=== PATIENT | male | born 1975 ===

== ENCOUNTER 2017-01-09 03:46 | Observation (INO) | payer MEDICAID ==
[2017-01-09 03:46] VITALS: BMI 29.7
--- NOTE | 2017-01-09 04:37 | ED PDOC ---
Upper Extremity Pain/Injury Time Seen by Provider: 01/09/17 04:04 Chief Complaint (Nursing): Upper Extremity Problem/Injury Chief Complaint (Provider): Right forearm pain History Per: Patient History/Exam Limitations: no limitations Onset/Duration Of Symptoms: Days Current Symptoms Are (Timing): Still Present Quality: "Pain" Severity: Severe Pain Scale Rating Of: 9 Exacerbating Factor(s): Movement Additional History Per: Patient Additional Complaint(s): Pt is a 41 y/o male with pmhx of cirrhosis ans esophageal varices recently discharged home from following an inpatient hospital stay. pt reports tuesday prior to his discharge, an IV line was started on him that initially formed a bubble at the site of insertion, then its got red and was hurting. He was told to use warm compresses at the site, but pain has not improved and swelling has actually increased. There is no vascular/neurologic deficits. Pt is able to move arm and fingers, denies any numbness or tingling, fever, chills, nausea or vomiting Past Medical History Vital Signs: Last Vital Signs Temp 98.6 F 01/09/17 03:55 Pulse 87 01/09/17 03:55 Resp 16 01/09/17 03:55 BP 165/83 H 01/09/17 03:55 Pulse Ox 100 01/09/17 03:55 - Medical History PMH: Denies: HIV, Chronic Kidney Disease - Surgical History Surgical History: Endoscopy - Family History Family History: States: Unknown Family Hx - Home Medications Home Medications: Ambulatory Orders Medication Instructions Recorded Ciprofloxacin [Cipro] 500 mg PO BID #10 tab 01/07/17 Pantoprazole [Protonix EC Tab] 40 mg PO DAILY #30 ect 01/07/17 - Allergies Allergies/Adverse Reactions: Allergies Allergy/AdvReac Type Severity Reaction Status Date / Time Penicillins Allergy RASH Verified 01/03/17 19:18 Review of Systems Constitutional: Negative for: Fever, Chills Cardiovascular: Negative for: Chest Pain, Palpitations Respiratory: Negative for: Cough, Shortness of Breath, Wheezing Gastrointestinal: Negative for: Nausea, Vomiting, Abdominal Pain Genitourinary Male: Negative for: Dysuria, Hematuria Musculoskeletal: Positive for: Arm Pain Skin: Positive for: Bruising Neurological: Negative for: Weakness, Numbness Physical Exam - Physical Exam Appears: Positive for: Uncomfortable Head Exam: Positive for: ATRAUMATIC, NORMOCEPHALIC Skin: Positive for: Warm, Dry Cardiovascular/Chest: Positive for: Regular Rate, Rhythm, Chest Non Tender. Negative for: JVD Respiratory: Positive for: Normal Breath Sounds. Negative for: Decreased Breath Sounds, Accessory Muscle Use, Wheezing Gastrointestinal/Abdominal: Positive for: Bowel Sounds, Soft. Negative for: Tenderness Extremity: Positive for: Tenderness (right fore arm is swelling, has about 10cm area of erythema), Capillary Refill. Negative for: Deformity Neurologic/Psych: Positive for: Alert, amf mechanic II-XII, Oriented. Negative for: Motor/Sensory Deficits - Laboratory Results Result Diagrams: 01/09/17 04:30 01/09/17 04:30 - ECG O2 Sat by Pulse Oximetry: 100 - Progress ED Course And Treament: cbc, cmp, pt/ptt, lactid acid pain medication ultrasound of upper extremity Re-evaluation Time: 06:15 Condition: Improving,but remains with symptoms Disposition - Clinical Impression Clinical Impression: At risk for thrombophlebitis - Patient ED Disposition Is Patient to be Admitted: Transfer of Care - Disposition Disposition: Transfer of Care Disposition Time: 06:50 Condition: FAIR Patient Signed Over To: Tej Mcguire (f/u ultrasound results)
[2017-01-09 04:38] LABS: MEAN CELL VOLUME 87.6 fl (80.0-94.0); MEAN CORPUSCULAR HEMOGLOBIN 29.3 pg (27.0-31.0); MEAN CORPUSCULAR HGB CONC 33.4 g/dL (33.0-37.0); RBC 3.08 Mil/uL (4.40-5.90); RED CELL DISTRIBUTION WIDTH 19.7 % (11.5-14.5); WHITE BLOOD COUNT 3.8 K/uL (4.8-10.8)
[2017-01-09 04:46] LABS: ALBUMIN 3.4 g/dL (3.5-5.0); ALT/SGPT 57 U/L (21-72); AST/SGOT 63 U/L (17-59); BLOOD UREA NITROGEN 22 mg/dl (9-20); CALCIUM 8.3 mg/dL (8.4-10.2); GFR AFRICAN-AMERICAN > 60; GFR NON-AFRICAN AMERICAN > 60
[2017-01-09 05:06] LABS: INR 1.7 (0.9-1.2); PARTIAL THROMBOPLASTIN TIME 35.2 Seconds (25.6-37.1); PROTHROMBIN TIME 17.5 Seconds (9.8-13.1)
--- NOTE | 2017-01-09 07:22 | ED PDOC ---
- Laboratory Results Result Diagrams: 01/09/17 04:30 01/09/17 04:30 - ECG O2 Sat by Pulse Oximetry: 100 (RA) Pulse Ox Interpretation: Normal Medical Decision Making Medical Decision Making: Time: 07:00 --Patient is signed out by Carlos Tracy to ks, pending ultrasound Disposition - Clinical Impression Clinical Impression: At risk for thrombophlebitis, Thrombophlebitis arm - POA Present On Arrival: None - Disposition Disposition: Routine/Home Disposition Time: 11:44 Condition: FAIR
[2017-01-09 11:35] VITALS: BP 125/72; PULSE 67; RESP 22; TEMP 97.8
[2017-01-09 11:45] VITALS: O2SAT 100
--- NOTE | 2017-01-09 12:25 | US ---
PROCEDURE: Right upper extremity duplex venous sonography HISTORY: r/o clots COMPARISON: None TECHNIQUE: Normal flow, augmentation and compressibility were noted. No evidence of deep vein thrombosis. FINDINGS: Noncompressible cephalic vein extending to the antecubital fossa region. Remaining vessels are unremarkable proximal including internal jugular vein. Subclavian, axillary, brachial and basilic veins demonstrate normal compressibility augmentation and [place]. IMPRESSION: Positive examination, for thrombosis limited to cephalic vein in the region of the antecubital fossa/ forearm. More proximally, right upper extremity vessels are unremarkable.
== END 2017-01-09 12:48 | disposition home or self-care (01) ==
LOC: H.ER 03:46 → H.EROBSV 05:02 → MERGE 05:02
PROVIDERS: ADMIT Emergency Medicine; ATTEND Emergency Medicine
DX: M79.89 Other specified soft tissue disorders (principal); M79.631 Pain in right forearm; K74.60 Unspecified cirrhosis of liver; I85.10 Secondary esophageal varices without bleeding

== ENCOUNTER 2017-01-09 21:53 | Emergency (ER) | payer MEDICAID ==
[2017-01-09 21:54] VITALS: BMI 29.7
[2017-01-09 22:09] VITALS: BP 123/67; PULSE 87; RESP 16; TEMP 98.2; O2SAT 99
[2017-01-09] MEDS ORDERED: Clindamycin 600 MG in Sodium Chloride 0.9% 100 ML IVPB STA (22:39)
--- NOTE | 2017-01-09 22:50 | ED PDOC ---
Upper Extremity Pain/Injury Time Seen by Provider: 01/09/17 22:33 Chief Complaint (Nursing): Upper Extremity Problem/Injury Chief Complaint (Provider): Right arm swelling worsened History Per: Patient History/Exam Limitations: no limitations Onset/Duration Of Symptoms: Hrs Current Symptoms Are (Timing): Still Present Quality: "Pain" Severity: Severe Pain Scale Rating Of: 9 Exacerbating Factor(s): Movement Additional History Per: Patient Additional Complaint(s): Pt is a 41 y/o male with pmhx of cirrhosis ans esophageal varices was presented to the ED early this morning with complaints of right arm pain and swelling. This morning pt reported he was discharged from his inpatient hospital stay on tuesday; but prior to his discharge, an IV line was started on him that initially formed a bubble at the site of insertion, then its got red and was hurting. He was told to use warm compresses at the site, but pain has not improved and swelling has actually increased. Ultrasound done this morning showed evidence of superficial thrombophlebitis so pt was discharged home with a script of antibiotics and pain medication. Pt is returning to ED tonight reporting increased pain and also not being able to turkey picker the medications because all the pharmacy's are closed. There is still no vascular/neurologic deficits. Pt is able to move arm and fingers, denies any numbness or tingling, fever, chills, nausea or vomiting Past Medical History Vital Signs: Last Vital Signs Temp 98.2 F 01/09/17 22:06 Pulse 87 01/09/17 22:06 Resp 16 01/09/17 22:06 BP 123/67 01/09/17 22:06 Pulse Ox 99 01/09/17 22:06 - Medical History PMH: Denies: HIV, Chronic Kidney Disease - Surgical History Surgical History: Endoscopy - Family History Family History: States: Unknown Family Hx - Home Medications Home Medications: Ambulatory Orders Medication Instructions Recorded Ciprofloxacin [Cipro] 500 mg PO BID #10 tab 01/07/17 Pantoprazole [Protonix EC Tab] 40 mg PO DAILY #30 ect 01/07/17 Naproxen [Naprosyn] 500 mg PO Q12H #20 tab 01/09/17 Sulfamethoxazole/Trimethoprim 1 tab PO BID #20 tab 01/09/17 [Bactrim DS 800 mg-160 mg] - Allergies Allergies/Adverse Reactions: Allergies Allergy/AdvReac Type Severity Reaction Status Date / Time Penicillins Allergy RASH Verified 01/03/17 19:18 Review of Systems Constitutional: Negative for: Fever, Chills, Sweats Cardiovascular: Negative for: Chest Pain, Palpitations Respiratory: Negative for: Cough, Shortness of Breath, Pleuritic Pain Gastrointestinal: Negative for: Nausea, Vomiting, Abdominal Pain Musculoskeletal: Positive for: Arm Pain Skin: Negative for: Rash Neurological: Negative for: Weakness, Numbness, Dizziness Physical Exam - Physical Exam Appears: Positive for: Well, No Acute Distress Cardiovascular/Chest: Positive for: Regular Rate, Rhythm, Chest Non Tender. Negative for: Edema Respiratory: Positive for: Normal Breath Sounds. Negative for: Decreased Breath Sounds, Wheezing Gastrointestinal/Abdominal: Positive for: Normal Exam, Bowel Sounds, Soft. Negative for: Tenderness Extremity: Positive for: Normal ROM, Tenderness (right forearm erythema as completely resolved compared to this morning, swelling appears to be improving) . Negative for: Calf Tenderness Neurologic/Psych: Positive for: Alert, beer cooler II-XII, Oriented - ECG O2 Sat by Pulse Oximetry: 99 - Progress ED Course And Treament: Given pt was just seen earlier today Will give first dose of antibiotic: Clindamycin due to penicillin allergy pain medication Pt advised to turkey picker prescription first thing tomorrow morning Re-evaluation Time: 22:50 Condition: Improved Disposition - Clinical Impression Clinical Impression: Swelling of arm - Disposition Referrals: [facility] [Outside] [facility] [Outside] Disposition: Routine/Home Disposition Time: 00:15 Condition: IMPROVED Additional Instructions: -ELEVATE RIGHT ARM -TAKE PAIN MEDICATION as instructed on last visit (NAPROXEN) as needed for swelling/pain - take antibiotics as prescribed and complete course -Please call [phone] tomorrow morning for appointment to the [facility] to follow up return to the ED with any worsening or concerning symptoms Instructions: Arm Pain (ED) Forms: [employer] ([place])
== END 2017-01-10 00:14 | disposition home or self-care (01) ==
LOC: H.ER 21:53 → MERGE 21:53 → H.ER 01-10 00:14
DX: M79.89 Other specified soft tissue disorders (principal)

== ENCOUNTER 2018-02-09 22:26 | Emergency (ER) | payer SELFPAY ==
[2018-02-09 22:26] VITALS: BMI 29.7
[2018-02-09 22:37] VITALS: BP 117/75; PULSE 87; TEMP 98.5; O2SAT 96
--- NOTE | 2018-02-09 22:50 | ED PDOC ---
HPI: SOB/CHF/COPD Time Seen by Provider: 02/09/18 22:38 Chief Complaint (Nursing): Abdominal Pain Chief Complaint (Provider): CHEST PAIN/ABD PAIN History Per: Patient (43 Y/O MALE H/O CIRRHOSIS HERE WITH INJURY RIGHT FLANK AFTER SWINGING LAMP STRUCK HIM ON RIGHT SIDE OF ABDOMEN. NOTES MODERATE PAIN ALONG CHEST WALL/ABDOMINAL WALL. ) Past Medical History Reviewed: Historical Data, Nursing Documentation, Vital Signs Vital Signs: Last Vital Signs Temp 98.5 F 02/09/18 22:32 Pulse 87 02/09/18 22:32 Resp 18 02/09/18 22:50 BP 117/75 02/09/18 22:32 Pulse Ox 96 02/10/18 00:09 - Medical History PMH: Denies: HIV, Chronic Kidney Disease - Surgical History Surgical History: Endoscopy - Family History Family History: States: Unknown Family Hx - Immunization History Hx Tetanus Toxoid Vaccination: Yes (x 2 years ago) Hx Influenza Vaccination: No Hx Pneumococcal Vaccination: No - Home Medications Home Medications: Ambulatory Orders Medication Instructions Recorded Famotidine [Pepcid] 20 mg PO BID #30 tab 07/17/16 Ciprofloxacin [Cipro] 500 mg PO BID #10 tab 01/07/17 Pantoprazole [Protonix EC Tab] 40 mg PO DAILY #30 ect 01/07/17 Naproxen [Naprosyn] 500 mg PO Q12H #20 tab 01/09/17 Sulfamethoxazole/Trimethoprim 1 tab PO BID #20 tab 01/09/17 [Bactrim DS 800 mg-160 mg] - Allergies Allergies/Adverse Reactions: Allergies Allergy/AdvReac Type Severity Reaction Status Date / Time Penicillins Allergy Verified 07/17/16 20:17 Review of Systems ROS Statement: Except As Marked, All Systems Reviewed And Found Negative Cardiovascular: Positive for: Chest Pain Gastrointestinal: Positive for: Abdominal Pain Physical Exam - Reviewed Nursing Documentation Reviewed: Yes Vital Signs Reviewed: Yes - Physical Exam Appears: Positive for: Well, Non-toxic, No Acute Distress Head Exam: Positive for: ATRAUMATIC, NORMAL INSPECTION, NORMOCEPHALIC Skin: Positive for: Normal Color, Warm, DRY Eye Exam: Positive for: EOMI, Normal appearance, PERRL ENT: Positive for: Normal ENT Inspection Neck: Positive for: Normal, Painless ROM Cardiovascular/Chest: Negative for: Regular Rate, Rhythm, Chest Non Tender ( RIGHT LOWER CHEST WALL TENDERNESS NOTED.) Respiratory: Positive for: CNT, Normal Breath Sounds Gastrointestinal/Abdominal: Positive for: Normal Exam, Soft, Tenderness (RIGHT UPPER QUADRANT TENDERNESS/ RIGHT FLANK TENDERNESS) Back: Positive for: Normal Inspection Extremity: Positive for: Normal ROM Neurologic/Psych: Positive for: Alert, Oriented - ECG O2 Sat by Pulse Oximetry: 96 - Progress ED Course And Treament: MORPHINE 4MG IM X 1 DOSE Disposition - Clinical Impression Clinical Impression: Rib injury, Abdominal trauma - Patient ED Disposition Is Patient to be Admitted: Transfer of Care - Disposition Disposition: Transfer of Care Disposition Time: 00:10 Condition: FAIR Additional Instructions: pending ct chest/abd/pelvis incentive spirometry Forms: makeena (Bolivian)
[2018-02-09] MEDS ORDERED: Morphine 4 MG/ML VIAL ONE (22:51)
[2018-02-09 23:02] VITALS: RESP 18
--- NOTE | 2018-02-10 00:09 | ED PDOC ---
- ECG O2 Sat by Pulse Oximetry: 96 (RA) Pulse Ox Interpretation: Normal Medical Decision Making Medical Decision Making: Case endorsed to poem writer, Ruth INIGUEZ, at 0000 due to shift change. Pertinent details reviewed. Patient pending CT read and re-evaluation. 0110 CTs reviewed, Radiology report follows EXAM: CT Chest Without Intravenous Contrast CT Abdomen and Pelvis Without Intravenous Contrast CLINICAL HISTORY: 43 years old, male; Pain; Abdominal pain; Flank; Right; Other: Rib pain; Additional info: Flank injury R/O rib fx/ hepatic injury/renal inju TECHNIQUE: Axial computed tomography images of the chest, abdomen and pelvis without intravenous contrast. All CT scans at this facility use at least one of these dose optimization techniques: automated exposure control; mA and/or kV adjustment per patient size (includes targeted exams where dose is matched to clinical indication); or iterative reconstruction. Coronal and sagittal reformatted images were created and reviewed. COMPARISON: No relevant prior studies available. FINDINGS: Limitations: Evaluation of the solid organs is limited by the lack of intravenous contrast. CHEST: Lungs: The central airways are patent. Normal lung lines. No focal consolidation. No suspicious mass or pulmonary nodule. Pleural space: No pneumothorax, pleural effusion, or pleural thickening. Heart: Normal. No cardiomegaly. No significant pericardial effusion. Thyroid: Normal appearance of the thyroid gland. ABDOMEN: Liver: Cirrhotic morphology of the liver with superimposed steatosis and/or fibrosis. Gallbladder and bile ducts: The gallbladder is mildly contracted with multiple intraluminal calcified gallstones. No ductal dilation. Pancreas: The pancreas is normal. No ductal dilation. Spleen: Splenomegaly measuring up to 20.0 cm in long axis dimension. Adrenals: The adrenal glands are normal. Kidneys and ureters: The kidneys are normal. The ureters are normal. No obstructing stones. No hydronephrosis. Stomach and bowel: Small bowel feces within the distal small bowel suggestive of chronic delayed gastric transit. No bowel dilation. No mucosal thickening. PELVIS: Appendix: No evidence of appendicitis. Bladder: Normal. No stones. Reproductive: The prostate gland and seminal vesicles are normal. CHEST, ABDOMEN and PELVIS: Intraperitoneal space: No pneumoperitoneum or free fluid. No perihepatic or perisplenic fluid collection. Bones/joints: There is a noninflamed plantar enthesophyte. Mild arthrosis of the glenohumeral and acromioclavicular joints. Diffuse thoracic and lumbar spondylosis. Probable 1.0 cm vertebral body hemangioma within the L2 vertebral body. Posterior disc osteophyte complexes at L2-3 and L5-S1 resulting in mild spinal canal narrowing at these levels. Moderate neuroforaminal narrowing at L5-S1. No acute fracture. No dislocation. Soft tissues: Normal. Vasculature: Gastrohepatic, perisplenic, and esophageal varices. No aortic aneurysm. Lymph nodes: Normal. No enlarged lymph nodes. IMPRESSION: 1. No acute abdominopelvic abnormality within the limitations of this noncontrast exam. 2. Cirrhosis with sequela of portal hypertension to include splenomegaly and multiple varicosities as detailed above. 3. Cholelithiasis. 4. No acute cardiopulmonary abnormality. 5. Thoracolumbar spondylosis as detailed above. Mild spinal canal narrowing is suggested at L2-3 and L5-S1. 6. L2 vertebral body lesion measuring 1.0 cm, likely a small hemangioma. Thank you for allowing us to participate in the care of your patient. Dictated and Authenticated by: Doe Mcintyre DO 02/10/2018 12:20 AM Eastern Time ([place] & [place]) On re-evaluation, patient reports improvement of symptoms. On exam, patient remains AAOx3, in no acute distress. Lungs clear to auscultation, cardiac RRR, repeat neuro exam shows no focal findings. VSS, stable for discharge. Lab/Diagnostic results d/w the patient in great detail. Diagnosis of rib/flank contusion d/w the patient. Based on history, exam and diagnostic results, plan will be for outpatient follow up. Patient instructed to follow-up with pmd / referral provided / the clinic in 1- 2 days without fail. Advised to take medication as prescribed. Return to the emergency room at any time for any new or worsening symptoms. Patient states he fully agrees with and understands discharge instructions. States that he agrees with the plan and disposition. Verbalized and repeated discharge instructions and plan. I have given the patient opportunity to ask any additional questions. Disposition Counseled Patient/Family Regarding: Studies Performed, Diagnosis, Need For Followup, Rx Given - Clinical Impression Clinical Impression: Rib injury, Abdominal trauma, Rib contusion - POA Present On Arrival: Falls Or Trauma - Disposition Referrals: [facility] [Outside] Disposition: Routine/Home Disposition Time: 01:17 Condition: FAIR Additional Instructions: The emergency medical care you received today was directed towards the acute presenting symptoms. If you were prescribed any medication, please fill it and give as directed. It may take several days for your symptoms to resolve. Return to the Emergency Department at any time if symptoms worsen, do not improve, or if any other problems arise. Please contact your doctor in 2 days for re-evaluation and follow up / or call one of the physicians/clinics you have been referred to that are listed on the Patient Visit Information form that is included in your discharge packet. Bring any paperwork you were given at discharge with you along with any medications to your follow up visit. Our treatment cannot replace ongoing medical care by a primary care provider (PCP) outside of the emergency department. Prescriptions: Non-Formulary 1 ea PO DAILY #1 ea traMADol [Ultram] 50 mg PO Q6 PRN #12 tab PRN Reason: Pain, Severe (8-10) Instructions: Contusion (DC), Bruised Rib (DC) Forms: [employer] (Faroese), [facility] School/Work Excuse Print Language: TAMAZIGHT
--- NOTE | 2018-02-10 08:47 | RAD ---
Date of service: 02/09/2018 PROCEDURE: Radiographs of the Chest and Right Ribs. HISTORY: rib fx COMPARISON: None available. TECHNIQUE: Frontal radiograph of the chest and multiple oblique radiographs of the right ribs were obtained. FINDINGS: RIGHT RIBS: No fracture or focal lesion visualized. LUNGS: Clear. PLEURA: No pneumothorax or pleural fluid. CARDIOVASCULAR: Normal sized heart. No pulmonary vascular congestion. OTHER FINDINGS: None. IMPRESSION: Unremarkable radiographs of the chest and right ribs. No right rib fracture.
--- NOTE | 2018-02-10 10:08 | CT ---
Date of service: 02/09/2018 PROCEDURE: CT Chest, Abdomen and Pelvis without intravenous contrast HISTORY: FLANK INJURY R/O RIB FX/ HEPATIC INJURY/RENAL INJU COMPARISON: None available. TECHNIQUE: Radiation dose: Total exam DLP = 842.11 mGy-cm. This CT exam was performed using one or more of the following dose reduction techniques: Automated exposure control, adjustment of the mA and/or kV according to patient size, and/or use of iterative reconstruction technique. FINDINGS: CT CHEST WITHOUT CONTRAST: LUNGS: Clear. No nodule, mass or consolidation. MEDIASTINUM: Unremarkable. Normal caliber aorta and pulmonary arterial trunk. Normal size heart. LYMPH NODES: Unremarkable. PLEURA: Unremarkable. No pneumothorax. No pleural fluid. BONES: No fracture identified. OTHER FINDINGS: None. CT ABDOMEN AND PELVIS: LIVER: Marked nodularity is seen throughout the liver with matter irregularly evident. Gastrohepatic ligament and esophageal varices are identified. Mild splenic varices are also identified laterally. Mild hepatomegaly is appreciated. GALLBLADDER AND BILE DUCTS: There is cholelithiasis within the gallbladder which is only mild to mildly distended and otherwise unremarkable appearing. No gross CBD dilatation. PANCREAS: Unremarkable. No gross lesion or ductal dilatation. SPLEEN: Spleen is enlarged to 20 cm without definitive mass related. ADRENALS: Unremarkable. No mass. KIDNEYS AND URETERS: Unremarkable. No hydronephrosis. No solid mass. VASCULATURE: Unremarkable. No aortic aneurysm. BOWEL: Unremarkable. No obstruction. No gross mural thickening. APPENDIX: Appendix not clearly identified. No CT evidence of appendicitis. PERITONEUM: Unremarkable. No free fluid. No free air. LYMPH NODES: Unremarkable. No enlarged lymph nodes. BLADDER: Unremarkable. REPRODUCTIVE: Mild prostate gland enlargement. BONES: No acute fracture. OTHER FINDINGS: None. IMPRESSION: 1. No acute chest findings. No fracture appreciable. 2. In the abdomen common there are no acute findings however there is extensive cirrhotic liver pattern appreciated with evidence of hepatofugal blood flow including varices and splenomegaly. Lack of intravenous contrast limits evaluation of the solid abdominal viscera. 3. Cholelithiasis. 4. Mild prostate gland enlargement. Concordant preliminary report from [facility], 02/10/2018.
== END 2018-02-10 01:38 | disposition home or self-care (01) ==
LOC: H.ER 22:26
DX: S22.31XA Fracture of one rib, right side, initial encounter for closed fracture (principal); S30.1XXA Contusion of abdominal wall, initial encounter; W22.8XXA Striking against or struck by other objects, initial encounter; Y92.89 Other specified places as the place of occurrence of the external cause; K74.60 Unspecified cirrhosis of liver; K76.6 Portal hypertension; Z88.0 Allergy status to penicillin
CPT/HCPCS: 71101; 71250; 74176; 96372; 99283; J2270

== ENCOUNTER 2018-06-30 09:13 | Inpatient (IN) | payer OTHER ==
[2018-06-30 09:13] VITALS: BMI 29.7
[2018-06-30] MEDS ORDERED: Sodium Chloride 0.9% 1,000 ML IV STA (09:30)
--- NOTE | 2018-06-30 09:46 | ED PDOC ---
HPI: General Adult Time Seen by Provider: 06/30/18 09:18 Chief Complaint (Nursing): GI Problem Chief Complaint (Provider): Im vomiting blood History Per: Patient History/Exam Limitations: no limitations Onset/Duration Of Symptoms: Days (1) Current Symptoms Are (Timing): Still Present Severity: Severe Additional Complaint(s): 43yo male hx cirrhosis and etoh dependence, c/o vomiting gross blood several episodes this morning, associated w mild dizziness and epigastric pain. Denies recent melena. Admits to alcohol abuse, last drink last night. History significant for 6 prior endoscopies for UGIB, patient unsure of source of bleeding, things varicies requiring banding. Past Medical History Reviewed: Historical Data, Nursing Documentation, Vital Signs Vital Signs: Last Vital Signs Temp 98.1 F 06/30/18 09:15 Pulse 103 H 06/30/18 09:15 Resp 19 06/30/18 09:15 BP 172/73 H 06/30/18 09:15 Pulse Ox 98 06/30/18 09:15 - Medical History PMH: Denies: HIV, Chronic Kidney Disease Other PMH: UGIB - Surgical History Surgical History: Endoscopy (x5) - Family History Family History: States: Unknown Family Hx - Living Arrangements Living Arrangements: With Family - Social History Alcohol: > 2 Drinks/Day - Immunization History Hx Tetanus Toxoid Vaccination: Yes (x 2 years ago) Hx Influenza Vaccination: No Hx Pneumococcal Vaccination: No - Home Medications Home Medications: Ambulatory Orders Medication Instructions Recorded RX: No Known Home Med 06/30/18 - Allergies Allergies/Adverse Reactions: Allergies Allergy/AdvReac Type Severity Reaction Status Date / Time Penicillins Allergy Verified 07/17/16 20:17 Review of Systems ROS Statement: Except As Marked, All Systems Reviewed And Found Negative Constitutional: Negative for: Fever Cardiovascular: Positive for: Light Headedness. Negative for: Chest Pain Respiratory: Negative for: Shortness of Breath Gastrointestinal: Positive for: Nausea, Vomiting, Abdominal Pain, Hematemesis. Negative for: Diarrhea, Melena, Rectal Pain Genitourinary Male: Negative for: Dysuria, Frequency Musculoskeletal: Negative for: Neck Pain, Back Pain Skin: Negative for: Rash, Lesions Neurological: Positive for: Dizziness. Negative for: Weakness, Incoordination, Headache Psych: Negative for: Suicidal ideation Physical Exam - Reviewed Nursing Documentation Reviewed: Yes Vital Signs Reviewed: Yes - Physical Exam Appears: Positive for: Non-toxic (+AOB) Head Exam: Positive for: ATRAUMATIC, NORMAL INSPECTION, NORMOCEPHALIC Skin: Positive for: Normal Color, Warm. Negative for: Jaundice, Mottled Eye Exam: Positive for: EOMI, Normal appearance, PERRL ENT: Positive for: Normal ENT Inspection Neck: Positive for: Normal, Painless ROM Cardiovascular/Chest: Positive for: Tachycardia Respiratory: Positive for: CNT, Normal Breath Sounds Pulses-Radial (L): 3+/4+ Pulses-Radial (R): 3+/4+ Gastrointestinal/Abdominal: Positive for: Soft. Negative for: Tenderness, Guarding Back: Positive for: Normal Inspection Extremity: Positive for: Normal ROM. Negative for: Deformity, Swelling Neurologic/Psych: Positive for: Alert, Oriented. Negative for: Motor/Sensory Deficits - Laboratory Results Result Diagrams: 07/05/18 04:20 07/04/18 04:30 - ECG O2 Sat by Pulse Oximetry: 98 Pulse Ox Interpretation: Normal - Critical Care Total Time (In Min): 45 Medical Decision Making Medical Decision Making: workup for Acute UGIB initiated w labs, pump house engineer, IVF bolus and protonix drip. Prior records reviewed, prior admit ICU 2014 for UGIB requiring PRBC transfusion. 1020am labs reviewed reveal anemia Hgb 8.3, lab performing smear for thrombocytopenia 1030am admitted to hospitalist Dr Aparicio, no current hypotension, HR 90s. Patient signed consent for PRBC after all risks and benefits were obtained. Plts, FFP, octreotide, protonix drip, initiated and d/w Dr Leger GI civil engineering design draftsperson agrees w plan, he recommends ICU for bedside EGD this afternoon 1pm d/w Dr Zazueta Intensive care. Disposition - Clinical Impression Clinical Impression: Thrombocytopenia, Alcoholic cirrhosis of liver, UGIB (upper gastrointestinal bleed), Anemia - Patient ED Disposition Is Patient to be Admitted: Yes - Disposition Disposition Time: 10:30 Condition: GUARDED
[2018-06-30] MEDS: Pantoprazole 40 MG in Sodium Chloride 0.9% 100 ML IVPB SCH ×3 (10:08→21:15)
[2018-06-30 10:10] LABS: EOS # 0.2 K/uL (0.0-0.7); EOS % 7.4 % (0.0-4.0); HEMOGLOBIN 8.3 g/dL (12.0-18.0); LYMPH # 0.4 K/uL (1.0-4.3); LYMPH % 17.6 % (20.0-40.0); MEAN CELL VOLUME 82.4 fl (80.0-94.0); MEAN CORPUSCULAR HEMOGLOBIN 25.7 pg (27.0-31.0); MEAN CORPUSCULAR HGB CONC 31.1 g/dL (33.0-37.0); MONO # 0.2 K/uL (0.0-0.8); MONO % 8.4 % (0.0-10.0); NEUT # 1.6 K/uL (1.8-7.0); NEUT % 64.6 % (50.0-75.0); NRBC % 0.1 % (0.0-0.0); RBC 3.25 Mil/uL (4.40-5.90); RED CELL DISTRIBUTION WIDTH 21.3 % (11.5-14.5); WHITE BLOOD COUNT 2.4 K/uL (4.8-10.8)
[2018-06-30 10:16] LABS: INR 1.5; PROTHROMBIN TIME 16.6 Seconds (9.8-13.1)
[2018-06-30 10:18] LABS: PARTIAL THROMBOPLASTIN TIME 37.2 Seconds (25.6-37.1)
[2018-06-30 10:47] LABS: ALB/GLOB RATIO 0.8 (1.0-2.1); ALBUMIN 3.5 g/dL (3.5-5.0); ALT/SGPT 66 U/L (21-72); AST/SGOT 120 U/L (17-59); BLOOD UREA NITROGEN 14 mg/dl (9-20); CALCIUM 7.8 mg/dL (8.4-10.2); GFR NON-AFRICAN AMERICAN > 60; LIPASE 147 U/L (23-300)
[2018-06-30 10:47] LABS: VENOUS BLOOD GAS BASE EXCESS -8.5 mmol/L (0.0-2.0); VENOUS BLOOD GAS PCO2 80 mmHg (40-60); VENOUS BLOOD GAS PO2 59 mm/Hg (30-55); VENOUS BLOOD PH 7.07 (7.32-7.43)
--- NOTE | 2018-06-30 11:24 | CP.PCM.HP ---
<Sultan Shalom - Last Filed: 06/30/18 14:18> History of Present Illness - History of Present Illness History of Present Illness: 43 year old male with PMHx of liver cirrhosis, esophageal varices, upper GI bleeding diagnosed in 2017 and alcohol use disorder presents to the emergency department for evaluation of hematemesis. Patient reports he had episodes of hematemesis around 8:30 am this morning that lasted for 5 minutes. Patient reports he has diffuse intermittent abdominal pain and abdominal distension for 2 weeks. Patient admits to be chronic alcohol drinker and drinks a pint of vodka daily. States he had multiple tequila drinks along with a pint of vodka yesterday. Denies any melena, rectal bleeding, diarrhea, constipation, fever, or chills. Denies nausea, chest pain, dyspnea or cough. Denies use of aspirin or NSAIDS. Patient reports he does not follow up with gastr oenterologist outpatient. States last blood transfusion, EGD with esophageal banding performed at [facility] in 12/2016. Patient is admitted to for management of upper GI bleeding. In the ER, Dr. Mcfarlane spoke with Dr. Leger who recommended protonix drip, octreotide drip and FFP. ROS: All 12 systems reviewed and negative except as mentioned in HPI PMHx: Liver cirrhosis, UGI bleeding, esophageal varices, alcohol use disorder Past surgical hx: esophageal band ligation Social hx: drinks 1 pint of vodka daily for last 17 years, smokes cigarettes occasionally. Denies any drug uses. Works as a mailroom associate. Family hx: Father of liver cirrhosis (non-alcoholic). Allergies: Penicillin Medications: none ED Course: Vitals: BP 172/73, HR 103, RR 19, temp 98.1, Pulse ox 98% CBC: 2.4>8.3/26.8<28 CMP: Na 142, K+ 3.9, Cl 103, bicarb 25, BUN/Cr 14/0.6, Ca 7.8, AST 120, ALT 66 Lipase 147 CXR: no acute cardiopulmonary disease. EC bmp, No acute ST/T wave changes. Patient received I L NS bolus, protononix 80 mg ivp, octreotide 50 mcg IPV GI consult: Dr. Leger Present on Admission - Present on Admission Any Indicators Present on Admission: No Review of Systems - Review of Systems Review of Systems: All 12 systems reviewed and negative except as mentioned in HPI Past Patient History - Infectious Disease Hx of Infectious Diseases: None - Past Medical History & Family History Past Medical History?: Yes - Past Social History Alcohol: > 2 Drinks/Day - CARDIAC Hx Cardiac Disorders: No - PULMONARY Hx Respiratory Disorders: No - NEUROLOGICAL Hx Neurological Disorder: No - HEENT Hx HEENT Problems: No - RENAL Hx Chronic Kidney Disease: No - ENDOCRINE/METABOLIC Hx Endocrine Disorders: No - HEMATOLOGICAL/ONCOLOGICAL Hx Human Immunodeficiency Virus (HIV): No - INTEGUMENTARY Hx Dermatological Problems: No - MUSCULOSKELETAL/RHEUMATOLOGICAL Hx Musculoskeletal Disorders: No - GASTROINTESTINAL Hx Gastrointestinal Disorders: No Other/Comment: cirrhosis - GENITOURINARY/GYNECOLOGICAL Hx Genitourinary Disorders: No - PSYCHIATRIC Hx Psychophysiologic Disorder: No Hx Substance Use: No - SURGICAL HISTORY Hx Surgeries: No - ANESTHESIA Hx Anesthesia: Yes Hx Anesthesia Reactions: No Hx Malignant Hyperthermia: No Meds Allergies/Adverse Reactions: Allergies Allergy/AdvReac Type Severity Reaction Status Date / Time Penicillins Allergy Verified 07/17/16 20:17 Physical Exam - Constitutional Appears: Non-toxic, No Acute Distress - Head Exam Head Exam: NORMAL INSPECTION - Eye Exam Eye Exam: Normal appearance, PERRL Pupil Exam: NORMAL ACCOMODATION, PERRL - ENT Exam ENT Exam: Mucous Membranes Moist, Normal Exam, Normal Oropharynx - Neck Exam Neck exam: Positive for: Normal Inspection - Respiratory Exam Respiratory Exam: Clear to Auscultation Bilateral, NORMAL BREATHING PATTERN. absent: Rhonchi, Wheezes - Cardiovascular Exam Cardiovascular Exam: Tachycardia, REGULAR RHYTHM, +S1, +S2 - GI/Abdominal Exam GI & Abdominal Exam: Normal Bowel Sounds, Soft. absent: Guarding, Rebound Additional comments: Mild diffuse tenderness, NO guarding or rigidity. Has mild distension. - Rectal Exam Rectal Exam: Deferred - Extremities Exam Extremities exam: Positive for: normal inspection. Negative for: calf tenderness Additional comments: No petechiae - Back Exam Back exam: NORMAL INSPECTION. absent: CVA tenderness (L), CVA tenderness (R) - Neurological Exam Neurological exam: Alert, Oriented x3 Additional comments: No tremor on hands - Psychiatric Exam Psychiatric exam: Normal Affect, Normal Mood - Skin Skin Exam: Normal Color, Warm Results - Vital Signs Recent Vital Signs: Last Vital Signs Temp 98.1 F 06/30/18 09:15 Pulse 103 H 06/30/18 09:15 Resp 19 06/30/18 09:15 BP 172/73 H 06/30/18 09:15 Pulse Ox 98 06/30/18 10:45 - Labs Result Diagrams: 06/30/18 10:00 06/30/18 10:00 Labs: Laboratory Results - last 24 hr 06/30/18 06/30/18 06/30/18 10:00 10:00 10:00 WBC 2.4 L RBC 3.25 L Hgb 8.3 L Hct 26.8 L MCV 82.4 D MCH 25.7 L MCHC 31.1 L RDW 21.3 H Plt Count 28 L* MPV 8.0 Neut % (Auto) 64.6 Lymph % (Auto) 17.6 L Payette % (Auto) 8.4 Eos % (Auto) 7.4 H Baso % (Auto) 2.0 Neut # (Auto) 1.6 L Lymph # (Auto) 0.4 L Payette # (Auto) 0.2 Eos # (Auto) 0.2 Baso # (Auto) 0.0 PT 16.6 H INR 1.5 APTT 37.2 H pO2 VBG pH VBG pCO2 VBG HCO3 VBG Total CO2 VBG O2 Sat (Calc) VBG Base Excess VBG Potassium Glucose Lactate FiO2 Blood Gas Comments Crit Value Called To Crit Value Called By Crit Value Read Back Blood Gas Notified Time Sodium 142 Potassium 3.9 Chloride 103 Carbon Dioxide 25 Anion Gap 18 BUN 14 Creatinine 0.6 L Est GFR ( Amer) > 60 Est GFR (Non-Af Amer) > 60 Random Glucose 134 H Calcium 7.8 L Phosphorus 3.7 Magnesium 1.7 Total Bilirubin 1.0 AST 120 H ALT 66 Alkaline Phosphatase 144 H Troponin I < 0.0120 Total Protein 7.7 Albumin 3.5 Globulin 4.2 H Albumin/Globulin Ratio 0.8 L Lipase 147 Venous Blood Potassium Alcohol, Quantitative 215 H 06/30/18 10:40 WBC RBC Hgb Hct MCV MCH MCHC RDW Plt Count MPV Neut % (Auto) Lymph % (Auto) Payette % (Auto) Eos % (Auto) Baso % (Auto) Neut # (Auto) Lymph # (Auto) Payette # (Auto) Eos # (Auto) Baso # (Auto) PT INR APTT pO2 59 H VBG pH 7.07 L* VBG pCO2 80 H* VBG HCO3 17.7 VBG Total CO2 25.7 VBG O2 Sat (Calc) 85.9 H VBG Base Excess -8.5 L VBG Potassium > 20.0 H* Glucose 118 H Lactate 2.0 FiO2 21.0 Blood Gas Comments Lac=2.0 Crit Value Called To brian Rangel do Crit Value Called By 22 Crit Value Read Back Y Blood Gas Notified Time 1046 Sodium 134.0 Potassium Chloride 111.0 H Carbon Dioxide Anion Gap BUN Creatinine Est GFR ( Amer) Est GFR (Non-Af Amer) Random Glucose Calcium Phosphorus Magnesium Total Bilirubin AST ALT Alkaline Phosphatase Troponin I Total Protein Albumin Globulin Albumin/Globulin Ratio Lipase Venous Blood Potassium > 20.0 H* Alcohol, Quantitative Assessment & Plan - Assessment and Plan (Free Text) Assessment: 43 year old male with PMHx of liver cirrhosis, esophageal varices, upper GI bleeding diagnosed in 2017 and alcohol use disorder presents to the emergency department for evaluation of hematemesis. Patient reports he had episodes of hematemesis around 8:30 am this morning that lasted for 5 minutes. Patient reports he has diffuse intermittent abdominal pain and abdominal distension for 2 weeks. Patient admits to be chronic alcohol drinker and drinks a pint of vodka daily. States he had multiple tequila drinks along with a pint of vodka yesterday. Denies any melena, rectal bleeding, diarrhea, constipation, fever, or chills. Denies use of aspirin or NSAIDS. 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 States last blood transfusion, EGD with esophageal banding performed at [facility] in 12/2016. Patient is admitted for upper GI bleeding. Upper GI Bleeding likely secondary to liver cirrhosis and esophageal varices -Admit to Telemetry -Stable BP with slight tachycardia -H&H 8.3/26.8 -[place] Bleeding score: 9 -S/P 1 L NS -GI Consult: Dr. Leger, recs appreciated. -ordered 3 units of FFP -c/w Octreotide -c/w Pantoprazole -c/w Ciprofloxacin for SBP prophylaxis. Pancytopenia secondary to liver cirrhosis -CBC: 2.4>8.3/26.8<28 -Will transfuse 3 units of FFP -f/u CBC Anemia likely secondary to acute blood loss -H&H 8.3/26.8 -Asymptomatic slight tachycardia initially, improved now -f/u CBC AM History Alcoholic Liver cirrhosis secondary to ETOH use disorder -MELD score 11 -GI consulted: f/u recommedation -c/w Ciprofloxacin for SBP prophylaxis Alcohol use disorder -ETOH for the last 17 years. -ETOH level 215 -Patient advised to stop drinking -No withdrawal symptoms today -CIWA score 2 -Alcohol withdrawal protocol -f/u symptoms DVT prophylaxis -Platelets 28 -SCDs for now Diet -NPO Code status -Full code Patient seen, examined and plan discussed with Dr. Markus Rausch, PGY-2 <Steve Aparicio D - Last Filed: 06/30/18 18:59> Results - Vital Signs Recent Vital Signs: Last Vital Signs Temp 98.6 F 06/30/18 18:35 Pulse 81 06/30/18 18:35 Resp 17 06/30/18 18:35 BP 97/55 L 06/30/18 18:35 Pulse Ox 95 06/30/18 17:00 - Labs Result Diagrams: 06/30/18 18:14 06/30/18 10:00 Labs: Laboratory Results - last 24 hr 06/30/18 06/30/18 06/30/18 10:00 10:00 10:00 WBC 2.4 L RBC 3.25 L Hgb 8.3 L Hct 26.8 L MCV 82.4 D MCH 25.7 L MCHC 31.1 L RDW 21.3 H Plt Count 28 L* MPV 8.0 Neut % (Auto) 64.6 Lymph % (Auto) 17.6 L Payette % (Auto) 8.4 Eos % (Auto) 7.4 H Baso % (Auto) 2.0 Neut # (Auto) 1.6 L Lymph # (Auto) 0.4 L Payette # (Auto) 0.2 Eos # (Auto) 0.2 Baso # (Auto) 0.0 PT 16.6 H INR 1.5 APTT 37.2 H pO2 VBG pH VBG pCO2 VBG HCO3 VBG Total CO2 VBG O2 Sat (Calc) VBG Base Excess VBG Potassium Glucose Lactate FiO2 Blood Gas Comments Crit Value Called To Crit Value Called By Crit Value Read Back Blood Gas Notified Time Sodium 142 Potassium 3.9 Chloride 103 Carbon Dioxide 25 Anion Gap 18 BUN 14 Creatinine 0.6 L Est GFR ( Amer) > 60 Est GFR (Non-Af Amer) > 60 Random Glucose 134 H Calcium 7.8 L Phosphorus 3.7 Magnesium 1.7 Total Bilirubin 1.0 AST 120 H ALT 66 Alkaline Phosphatase 144 H Troponin I < 0.0120 Total Protein 7.7 Albumin 3.5 Globulin 4.2 H Albumin/Globulin Ratio 0.8 L Lipase 147 Venous Blood Potassium Alcohol, Quantitative 215 H Blood Type Antibody Screen Crossmatch BBK History Checked 06/30/18 06/30/18 06/30/18 10:40 11:40 18:14 WBC 1.7 L* RBC 2.63 L Hgb 6.7 L Hct 21.7 L MCV 82.7 MCH 25.6 L MCHC 31.0 L RDW 21.2 H Plt Count 29 L* MPV 8.2 Neut % (Auto) 58.1 Lymph % (Auto) 24.4 Payette % (Auto) 9.2 Eos % (Auto) 6.8 H Baso % (Auto) 1.5 Neut # (Auto) 1.0 L Lymph # (Auto) 0.4 L Payette # (Auto) 0.2 Eos # (Auto) 0.1 Baso # (Auto) 0.0 PT INR APTT pO2 59 H VBG pH 7.07 L* VBG pCO2 80 H* VBG HCO3 17.7 VBG Total CO2 25.7 VBG O2 Sat (Calc) 85.9 H VBG Base Excess -8.5 L VBG Potassium > 20.0 H* Glucose 118 H Lactate 2.0 FiO2 21.0 Blood Gas Comments Lac=2.0 Crit Value Called To brian Rangel do Crit Value Called By 22 Crit Value Read Back Y Blood Gas Notified Time 1046 Sodium 134.0 Potassium Chloride 111.0 H Carbon Dioxide Anion Gap BUN Creatinine Est GFR ( Amer) Est GFR (Non-Af Amer) Random Glucose Calcium Phosphorus Magnesium Total Bilirubin AST ALT Alkaline Phosphatase Troponin I Total Protein Albumin Globulin Albumin/Globulin Ratio Lipase Venous Blood Potassium > 20.0 H* Alcohol, Quantitative Blood Type O POSITIVE Antibody Screen Negative Crossmatch See Detail BBK History Checked Patient has bt Attending/Attestation - Attestation I have personally seen and examined this patient.: Yes I have fully participated in the care of the patient.: Yes I have reviewed all pertinent clinical information: Yes Notes (Text): 06/30/18 18:58 Patient seen and examined with resident. Case discussed and agreed with assessment and plan of management.
--- NOTE | 2018-06-30 11:32 | RAD ---
Date of service: 06/30/2018 HISTORY: SOB COMPARISON: 02/09/2018 FINDINGS: LUNGS: No active pulmonary disease. PLEURA: No significant pleural effusion identified, no pneumothorax apparent. CARDIOVASCULAR: No atherosclerotic calcification present Normal. OSSEOUS STRUCTURES: No significant abnormalities. VISUALIZED UPPER ABDOMEN: Normal. OTHER FINDINGS: None. IMPRESSION: No active disease. No significant interval change compared to the prior examination(s).
[2018-06-30] MEDS ORDERED: Multivitamin (MVI) 10 ML, Folic Acid 1 MG, Thiamine 100 MG in Dextrose 5%/0.45% NS 1,00... IV ONE (11:46)
[2018-06-30] MEDS ORDERED: EPINEPHrine 1 mg/ml (1:1000) Inj ONE (12:04)
[2018-06-30] MEDS ORDERED: Ciprofloxacin 400mg/200ml D5W 400 MG/200 ML BAG IVPB ONE (12:22)
[2018-06-30] MEDS: Ciprofloxacin 400mg/200ml D5W 400 MG/200 ML BAG IVPB SCH ×2 (12:48→21:46)
--- NOTE | 2018-06-30 14:51 | CP.PCM.PCO ---
Addendum Addendum: Notified by and discussed with GI: No plans for bedside EGD in ICU today as bleeding is not voluminous and recurrent, with only mild coagulopathy, and low platelets, and normal BUN. Will monitor in ICU as Telemetry overflow. He is awake and alert, despite elevated ETOH level. No other critical care interventions anticipated.
--- NOTE | 2018-06-30 16:47 | CP.CCUPN ---
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 Initial bloodwork did show abnormal labs with low platelets, and INR 1.5, HGB 8.3, usual HGB unknown. Last known treatment for GI bleeding was approx. 1.5 yrs ago for variceal bleeding and underwent banding. In ER, noted to be tachycardic to 103, no hypotension observed, SPo2 99% on RA. Given 1 liter saline, stated on Octreotide and PPi drips, given empiric Cipro. GI planning to do EGD at the bedside in ICU, but cancelled after re-eval with plans for ongoing monitoring for now instead. He denies any chest or abdominal discomfort, denies any further nausea, but he did receive a dose of Zofran earlier. ROS: as above. No other pertinent negs or positives on 10+ system review. Allergies: penicillin Home Meds: admits to poor compliance. PMSFH: All other Nursing and physician documentation reviewed to date; no new pertinent info noted relevant to current medical problems. EXAM- HEENT: no icterus, no gaze preference NECK: No JVD visible, supple, carotids equal upstroke bilat/no bruit. CHEST: clear BS bilat; no wheezes audible bilaterally. HEART: regular, distant, S1S2, no rubs or murmurs noted ABD: soft, mildly obese, nontender, no guarding, no organomegaly, BS hypoactive. EXT: no leg edema, no calf tenderness or palpable cords, distal pulses intact and symmetrical. NEURO: no gross focal motor deficits. SKIN: no rashes, warm and dry LABS: WBC= 2.4 HGB= 8.3 PLTs= 28K INR = 1.5 with PTT= 37.2 Lactate= 2.0 Na= 142 K= 3.9 CL= 103 HCO3= 25 BUN/Cr= 14/0.6 BS= 134 CXR: clear (my interp). IMPRESSION / MAJOR PROBLEMS NOW: 1. UGIB r/o variceal hemorrhage recurrence versus ETOH Gastritis, other occult PUD 2. Chronic disease anemia 3. Chronic Thrombocytopenia 4. Chronic ETOH Abuse with Acute Intoxication PLAN: 1. Platelets and FFP ordered. Hold on PRBCs with Hgb at approx. 8, repeat CBC at 5PM today and re-assess. 2. Octreotide and PPi drips as per GI. 3. EGD if another episode of emesis or HGB drops significantly further. 4. NPO 5. Thiamine/ Folate supplements. NSS IVF hydration. 6. Follow temps, WBC, watch for bacteremia. Empiric Cipro started. 7. Watch for ETOH withdrawal symptoms. 8. May benefit from non-selective beta-blockade.
[2018-06-30 18:39] LABS: BASO % 1.5 % (0.0-2.0); EOS # 0.1 K/uL (0.0-0.7); EOS % 6.8 % (0.0-4.0); HEMOGLOBIN 6.7 g/dL (12.0-18.0); LYMPH # 0.4 K/uL (1.0-4.3); LYMPH % 24.4 % (20.0-40.0); MEAN CELL VOLUME 82.7 fl (80.0-94.0); MEAN CORPUSCULAR HEMOGLOBIN 25.6 pg (27.0-31.0); MEAN PLATELET VOLUME 8.2 fl (7.2-11.7); MONO # 0.2 K/uL (0.0-0.8); MONO % 9.2 % (0.0-10.0); NEUT % 58.1 % (50.0-75.0); NRBC % 0.1 % (0.0-0.0); RBC 2.63 Mil/uL (4.40-5.90); RED CELL DISTRIBUTION WIDTH 21.2 % (11.5-14.5)
[2018-06-30 18:44] LABS: WHITE BLOOD COUNT 1.7 K/uL (4.8-10.8)
[2018-06-30] MEDS ORDERED: Dextrose 5%/0.9% NS 1,000 ML IV SCH (20:30)
[2018-06-30 21:44] LABS: URINE BILIRUBIN NEGATIVE (NEGATIVE); URINE BLOOD NEGATIVE (NEGATIVE); URINE CLARITY CLEAR (Clear); URINE COLOR YELLOW (YELLOW); URINE GLUCOSE (UA) NEG (NEGATIVE); URINE LEUKOCYTE ESTERASE NEG Leu/uL (Negative); URINE PROTEIN NEGATIVE (NEGATIVE)
[2018-06-30] MEDS: Dextrose 5%/0.9% NS 1,000 ML IV SCH (22:30)
--- NOTE | 2018-06-30 23:11 | CARD ---
APPROVED REPORT Date of service: 06/30/2018 EKG Measurement Heart [id number] <Conclusion> Normal sinus rhythm Possible Inferior infarct, age undetermined Abnormal ECG
[2018-07-01] MEDS: Pantoprazole 40 MG in Sodium Chloride 0.9% 100 ML IVPB SCH ×4 (02:33→20:00)
[2018-07-01] MEDS: Dextrose 5%/0.9% NS 1,000 ML IV SCH ×2 (06:27→23:05)
[2018-07-01 06:43] LABS: BASO % 0.6 % (0.0-2.0); EOS # 0.1 K/uL (0.0-0.7); EOS % 3.3 % (0.0-4.0); HEMOGLOBIN 8.1 g/dL (12.0-18.0); LYMPH # 0.3 K/uL (1.0-4.3); LYMPH % 13.3 % (20.0-40.0); MEAN CELL VOLUME 82.8 fl (80.0-94.0); MEAN CORPUSCULAR HEMOGLOBIN 26.3 pg (27.0-31.0); MEAN CORPUSCULAR HGB CONC 31.8 g/dL (33.0-37.0); MEAN PLATELET VOLUME 8.4 fl (7.2-11.7); MONO # 0.2 K/uL (0.0-0.8); MONO % 8.4 % (0.0-10.0); NEUT # 1.7 K/uL (1.8-7.0); NEUT % 74.4 % (50.0-75.0); NRBC % 0.2 % (0.0-0.0); RBC 3.08 Mil/uL (4.40-5.90); RED CELL DISTRIBUTION WIDTH 19.9 % (11.5-14.5); WHITE BLOOD COUNT 2.3 K/uL (4.8-10.8)
[2018-07-01 06:47] LABS: INR 1.4; PROTHROMBIN TIME 15.7 Seconds (9.8-13.1)
[2018-07-01 06:49] LABS: PARTIAL THROMBOPLASTIN TIME 34.9 Seconds (25.6-37.1)
[2018-07-01 07:21] LABS: ALB/GLOB RATIO 0.8 (1.0-2.1); ALBUMIN 3.1 g/dL (3.5-5.0); ALT/SGPT 56 U/L (21-72); AST/SGOT 111 U/L (17-59); BLOOD UREA NITROGEN 13 mg/dl (9-20); CALCIUM 7.5 mg/dL (8.4-10.2); GFR NON-AFRICAN AMERICAN > 60
[2018-07-01] MEDS: THIAMINE IV SCH (08:35)
[2018-07-01] MEDS: WATER IV SCH (08:35)
[2018-07-01] MEDS: DEXTROSE 5% IV SCH (08:35)
--- NOTE | 2018-07-01 08:43 | CP.CCUPN ---
CCU Subjective - Physician Review Subjective (Free Text): No recurrent nausea/vomiting, nor other GI complaints overnight, rec'd all ordered blood products: 3 Platelets/ 2 PRBcs/ 1 FFP. Afebrile, no fever spikes, consistent hemodynamic stability, SBP 120's HR 80's sinus, RR 18, SPo2 99% on NC. ROS: as above. No other pertinent negs or positives on 10+ system review. Allergies: penicillin Home Meds: admits to poor compliance. PMSFH: All other Nursing and physician documentation reviewed to date; no new pertinent info noted relevant to current medical problems. EXAM- HEENT: no icterus, no gaze preference NECK: No JVD visible, supple, carotids equal upstroke bilat/no bruit. CHEST: clear BS bilat; no wheezes audible bilaterally. HEART: regular, distant, S1S2, no rubs or murmurs noted ABD: soft, mildly obese, nontender, no guarding, no organomegaly, BS hypoactive. EXT: no leg edema, no calf tenderness or palpable cords, distal pulses intact and symmetrical. NEURO: no gross focal motor deficits. SKIN: no rashes, warm and dry LABS: WBC= 2.3 HGB= 8.1 PLTs= 43K INR = 1.4 with PTT= 34.9 Na= 137 K= 4.0 CL= 97 HCO3= 30 BUN/Cr= 13/0.6 BS= 245 IMPRESSION / MAJOR PROBLEMS NOW: 1. UGIB r/o variceal hemorrhage recurrence versus ETOH Gastritis, other occult PUD 2. Chronic disease anemia 3. Chronic Thrombocytopenia 4. Chronic ETOH Abuse with Acute Intoxication PLAN: 1. Keep Octreotide / PPI drip another 24H or as directed by GI. 2. GI for apprpriateness of endoscopy. 3. Thiamine/ Folate supplements. NSS IVF hydration.Watch for ETOH withdrawal symptoms. 4. Follow temps, WBC, watch for bacteremia. Empiric Cipro started. 5. Candidate for non-selective beta-blockade?
[2018-07-01] MEDS ORDERED: Thiamine 100 mg/ml Inj IV SCH (09:00)
[2018-07-01] MEDS ORDERED: DEXTROSE 5% IV SCH (09:00)
[2018-07-01] MEDS ORDERED: WATER IV SCH (09:00)
[2018-07-01] MEDS ORDERED: THIAMINE IV SCH (09:00)
[2018-07-01] MEDS: Ciprofloxacin 400mg/200ml D5W 400 MG/200 ML BAG IVPB SCH ×2 (09:11→21:34)
--- NOTE | 2018-07-01 10:01 | CP.PCM.PN ---
Subjective - Date & Time of Evaluation Date of Evaluation: 07/01/18 Time of Evaluation: 09:40 - Subjective Subjective: Patient seen and examined this morning. Patient received 2 units of PRBC and 3 units of platelets and 1 unit of FFP yesterday and last night. Reports he had mild headache this morning but resolved. No vomiting since the admission. Denies any nausea, vomiting, melena, tremor, chest pain or dyspnea. Diet was advanced to clear liquid this morning. Objective - Vital Signs/Intake and Output Vital Signs (last 24 hours): Temp Pulse Resp BP Pulse Ox 98.4 F 77 16 123/61 99 07/01/18 08:00 07/01/18 08:00 07/01/18 08:00 07/01/18 08:00 07/01/18 08:00 Intake and Output: 07/01/18 07/01/18 06:59 18:59 Intake Total 3214 260 Output Total 1300 Balance 1914 260 - Medications Medications: Current Medications Chlordiazepoxide (Librium) 25 mg PO Q6 SHARIF Last Admin: 07/01/18 09:14 Dose: 25 mg Ciprofloxacin (Cipro 400mg/200ml Dsw) 400 mg in 200 mls @ 200 mls/hr IVPB Q12 SHARIF; Protocol Last Admin: 07/01/18 09:11 Dose: 200 mls/hr Folic Acid 1 mg/ Sodium (Chloride) 100.2 mls @ 60 mls/hr IVPB DAILY SHARIF Last Admin: 07/01/18 08:35 Dose: 60 mls/hr Pantoprazole Sodium 40 mg/ (Sodium Chloride) 100 mls @ 20 mls/hr IVPB Q5H SHARIF Last Admin: 07/01/18 06:25 Dose: 20 mls/hr Octreotide Acetate 1,250 mcg/ (Sodium Chloride) 252.5 mls @ 10.1 mls/hr IV .Q24H SHARIF; Protocol Last Admin: 07/01/18 06:26 Dose: 10.1 mls/hr Thiamine HCl 100 mg/ Dextrose 101 mls @ 100 mls/hr IV DAILY SHARIF Last Admin: 07/01/18 08:35 Dose: 100 mls/hr Dextrose/Sodium Chloride (Dextrose 5%/0.9% Ns 1000 Ml) 1,000 mls @ 100 mls/hr IV .Q10H SHARIF Stop: 07/01/18 20:26 Last Admin: 07/01/18 06:27 Dose: 100 mls/hr Lorazepam (Ativan) 1 mg IVP Q4H PRN PRN Reason: Symptoms of alcohol withdrawl Ondansetron HCl (Zofran Inj) 4 mg IVP Q6 PRN PRN Reason: Nausea/Vomiting - Labs Labs: 07/01/18 05:30 07/01/18 05:30 PT 15.7 Seconds (9.8-13.1) H 07/01/18 05:30 INR 1.4 07/01/18 05:30 APTT 34.9 Seconds (25.6-37.1) 07/01/18 05:30 - Constitutional Appears: Non-toxic, No Acute Distress - Head Exam Head Exam: NORMAL INSPECTION - Eye Exam Eye Exam: Normal appearance - ENT Exam ENT Exam: Mucous Membranes Moist - Neck Exam Neck Exam: Normal Inspection. absent: Meningismus - Respiratory Exam Respiratory Exam: Clear to Ausculation Bilateral, NORMAL BREATHING PATTERN. absent: Rhonchi, Wheezes - Cardiovascular Exam Cardiovascular Exam: REGULAR RHYTHM, +S1, +S2 - GI/Abdominal Exam GI & Abdominal Exam: Distended (mild), Soft, Normal Bowel Sounds. absent: Guarding, Rigid, Tenderness, Rebound - Extremities Exam Extremities Exam: Normal Capillary Refill, Normal Inspection. absent: Calf Tenderness - Neurological Exam Neurological Exam: Alert, Awake, Oriented x3 - Psychiatric Exam Psychiatric exam: Normal Affect, Normal Mood. absent: Anxious - Skin Skin Exam: Normal Color, Warm. absent: Petechiae Assessment and Plan - Assessment and Plan (Free Text) Plan: 43 year old male with PMHx of liver cirrhosis, esophageal varices, upper GI bleeding diagnosed in 2017 and alcohol use disorder presents to the emergency department for evaluation of hematemesis. Patient reports he had episodes of hematemesis around 8:30 am this morning that lasted for 5 minutes. Patient reports he has diffuse intermittent abdominal pain and abdominal distension for 2 weeks. Patient admits to be chronic alcohol drinker and drinks a pint of vodka daily. States he had multiple tequila drinks along with a pint of vodka yesterday. Denies any melena, rectal bleeding, diarrhea, constipation, fever, or chills. Denies use of aspirin or NSAIDS. Patient reports he does not follow up with camera person outpatient in the past. States last blood transfusion, EGD with esophageal banding performed at [facility] in 12/2016. Patient is admitted for management of upper GI bleeding. Patient received 2 units of PRBC and 3 units of platelets and 1 unit of FFP yesterday and last night. No emergent EGD planned for now as per GI. Continue to monitor. Upper GI Bleeding likely secondary to alcoholic gastritis vs esophageal varices -Admit to Telemetry, currently in ICU for tele overflow -Stable BP with slight tachycardia -s/p 2 units of PRBC and 3 units of platelets and 1 unit of FFP -H&H 8.1/25.5 this morning -Art-Blatchford Bleeding score: 9 -GI Consult: Dr. Leger, recs appreciated. -c/w Octreotide IVP -c/w Pantoprazole IVP -c/w Ciprofloxacin for SBP prophylaxis. 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 -ETOH level 215 -Patient advised to stop drinking -No withdrawal symptoms today -CIWA score 2 -Alcohol withdrawal protocol -Librium 25 mg po q8 -f/u symptoms DVT prophylaxis -Platelets 43 -SCDs for now Diet -Clear liquid Code status -Full code Plan discussed with Dr. Unique Rausch, PGY-2
[2018-07-01 16:48] LABS: HEMOGLOBIN 8.5 g/dL (12.0-18.0); MEAN CORPUSCULAR HEMOGLOBIN 27.4 pg (27.0-31.0); RBC 3.11 Mil/uL (4.40-5.90); RED CELL DISTRIBUTION WIDTH 19.8 % (11.5-14.5)
[2018-07-01 16:53] LABS: WHITE BLOOD COUNT 1.9 K/uL (4.8-10.8)
--- NOTE | 2018-07-01 23:56 | CP.PCM.CON ---
History of Present Illness - History of Present Illness History of Present Illness: 43 yo male with heavy alcohol use admitted with hematemesis and anemia. Patient had vomiting at home on morning of admission. Admits to heavy alcohol use. In December 2016 upper endsocopy demonstrated large esophageal varices which were banded. No vomiting or maroon stools since admission though stools were black today. Now c/o lower abdominal pain. Review of Systems - Constitutional Constitutional: absent: Chills - EENT Eyes: absent: Blurred Vision Ears: absent: Ear Pain Nose/Mouth/Throat: absent: Epistaxis - Cardiovascular Cardiovascular: absent: Chest Pain - Respiratory Respiratory: absent: Cough - Gastrointestinal Gastrointestinal: As Per HPI - Genitourinary Genitourinary: absent: Change in Urinary Stream Past Patient History - Infectious Disease Hx of Infectious Diseases: None - Past Medical History & Family History Past Medical History?: Yes - Past Social History Smoking Status: Former Smoker - CARDIAC Hx Cardiac Disorders: No - PULMONARY Hx Respiratory Disorders: No - NEUROLOGICAL Hx Neurological Disorder: No - HEENT Hx HEENT Problems: No - RENAL Hx Chronic Kidney Disease: No - ENDOCRINE/METABOLIC Hx Endocrine Disorders: No - HEMATOLOGICAL/ONCOLOGICAL Hx Blood Disorders: Yes Hx AIDS: No Hx Anemia: Yes Hx Blood Transfusions: Yes Hx Cirrhosis: Yes Hx Human Immunodeficiency Virus (HIV): No - INTEGUMENTARY Hx Dermatological Problems: No - MUSCULOSKELETAL/RHEUMATOLOGICAL Hx Musculoskeletal Disorders: No Hx Falls: No - GASTROINTESTINAL Hx Gastrointestinal Disorders: Yes Hx Esophageal Varices: Yes Other/Comment: cirrhosis - GENITOURINARY/GYNECOLOGICAL Hx Genitourinary Disorders: No - PSYCHIATRIC Hx Psychophysiologic Disorder: No Hx Substance Use: No - SURGICAL HISTORY Hx Surgeries: No - ANESTHESIA Hx Anesthesia: Yes Hx Anesthesia Reactions: No Hx Malignant Hyperthermia: No Meds Allergies/Adverse Reactions: Allergies Allergy/AdvReac Type Severity Reaction Status Date / Time Penicillins Allergy Verified 07/17/16 20:17 - Medications Medications: Current Medications Chlordiazepoxide (Librium) 25 mg PO Q8 SHARIF Last Admin: 07/01/18 17:20 Dose: 25 mg Ciprofloxacin (Cipro 400mg/200ml Dsw) 400 mg in 200 mls @ 200 mls/hr IVPB Q12 SHARIF; Protocol Last Admin: 07/01/18 21:34 Dose: 200 mls/hr Folic Acid 1 mg/ Sodium (Chloride) 100.2 mls @ 60 mls/hr IVPB DAILY SHARIF Last Admin: 07/01/18 08:35 Dose: 60 mls/hr Pantoprazole Sodium 40 mg/ (Sodium Chloride) 100 mls @ 20 mls/hr IVPB Q5H SHARIF Last Admin: 07/01/18 20:00 Dose: 20 mls/hr Octreotide Acetate 1,250 mcg/ (Sodium Chloride) 252.5 mls @ 10.1 mls/hr IV .Q24H SHARIF; Protocol Last Admin: 07/01/18 15:04 Dose: 10.1 mls/hr Thiamine HCl 100 mg/ Dextrose 101 mls @ 100 mls/hr IV DAILY SHARIF Last Admin: 07/01/18 08:35 Dose: 100 mls/hr Dextrose/Sodium Chloride (Dextrose 5%/0.9% Ns 1000 Ml) 1,000 mls @ 50 mls/hr IV .Q20H SHARIF Stop: 07/02/18 22:41 Last Admin: 07/01/18 23:05 Dose: 50 mls/hr Lorazepam (Ativan) 1 mg IVP Q4H PRN PRN Reason: Symptoms of alcohol withdrawl Ondansetron HCl (Zofran Inj) 4 mg IVP Q6 PRN PRN Reason: Nausea/Vomiting Physical Exam - Constitutional Appears: Non-toxic - Head Exam Head Exam: ATRAUMATIC - Eye Exam Eye Exam: Normal appearance - ENT Exam ENT Exam: Mucous Membranes Moist - Neck Exam Neck exam: Positive for: Normal Inspection - Respiratory Exam Respiratory Exam: NORMAL BREATHING PATTERN - Cardiovascular Exam Cardiovascular Exam: REGULAR RHYTHM, +S1, +S2 - GI/Abdominal Exam GI & Abdominal Exam: Normal Bowel Sounds, Soft, Tenderness. absent: Distended Additional comments: Mild lower abdominal tenderness Results - Vital Signs Recent Vital Signs: Last Vital Signs Temp 99.2 F 07/01/18 23:40 Pulse 66 07/01/18 23:40 Resp 15 07/01/18 23:40 BP 115/67 07/01/18 23:40 Pulse Ox 100 07/01/18 23:40 - Labs Result Diagrams: 07/01/18 16:43 07/01/18 05:30 Labs: Laboratory Results - last 24 hr 06/30/18 07/01/18 07/01/18 11:40 05:30 05:30 WBC 2.3 L RBC 3.08 L Hgb 8.1 L Hct 25.5 L MCV 82.8 MCH 26.3 L MCHC 31.8 L RDW 19.9 H Plt Count 43 L MPV 8.4 Neut % (Auto) 74.4 Lymph % (Auto) 13.3 L Walsh % (Auto) 8.4 Eos % (Auto) 3.3 Baso % (Auto) 0.6 Neut # (Auto) 1.7 L Lymph # (Auto) 0.3 L Walsh # (Auto) 0.2 Eos # (Auto) 0.1 Baso # (Auto) 0.0 PT INR APTT Sodium 137 Potassium 4.0 Chloride 97 L Carbon Dioxide 30 Anion Gap 14 BUN 13 Creatinine 0.6 L Est GFR ( Amer) > 60 Est GFR (Non-Af Amer) > 60 Random Glucose 245 H Calcium 7.5 L Total Bilirubin 2.2 H AST 111 H ALT 56 Alkaline Phosphatase 89 Troponin I < 0.0120 Total Protein 6.9 Albumin 3.1 L Globulin 3.8 Albumin/Globulin Ratio 0.8 L Crossmatch See Detail 07/01/18 07/01/18 05:30 16:43 WBC 1.9 L* RBC 3.11 L Hgb 8.5 L Hct 25.8 L MCV 83.0 MCH 27.4 MCHC 33.0 RDW 19.8 H Plt Count 40 L MPV Neut % (Auto) Lymph % (Auto) Walsh % (Auto) Eos % (Auto) Baso % (Auto) Neut # (Auto) Lymph # (Auto) Walsh # (Auto) Eos # (Auto) Baso # (Auto) PT 15.7 H INR 1.4 APTT 34.9 Sodium Potassium Chloride Carbon Dioxide Anion Gap BUN Creatinine Est GFR ( Amer) Est GFR (Non-Af Amer) Random Glucose Calcium Total Bilirubin AST ALT Alkaline Phosphatase Troponin I Total Protein Albumin Globulin Albumin/Globulin Ratio Crossmatch Assessment & Plan (1) UGIB (upper gastrointestinal bleed) Assessment and Plan: Currently w/o active bleeding. Maintain IV pantoprazole and Octreotide. Upper endoscopy Tuesday. Has pancytopenia possibly due to bone marrow suppession from Etoh. Etoh level 215 upon admission. Cause of lower abdominal pain unclear and physical exam relatiively benign. Will follow clinically. Status: Acute Priority: High
[2018-07-02] MEDS: Pantoprazole 40 MG in Sodium Chloride 0.9% 100 ML IVPB SCH ×5 (00:47→20:58)
[2018-07-02 06:41] LABS: HEMOGLOBIN 8.1 g/dL (12.0-18.0); MEAN CELL VOLUME 83.7 fl (80.0-94.0); MEAN CORPUSCULAR HEMOGLOBIN 26.5 pg (27.0-31.0); MEAN CORPUSCULAR HGB CONC 31.6 g/dL (33.0-37.0); RBC 3.08 Mil/uL (4.40-5.90)
[2018-07-02 06:50] LABS: ALB/GLOB RATIO 0.8 (1.0-2.1); ALBUMIN 3.2 g/dL (3.5-5.0); ALT/SGPT 80 U/L (21-72); AST/SGOT 212 U/L (17-59); BLOOD UREA NITROGEN 10 mg/dl (9-20); CALCIUM 8.1 mg/dL (8.4-10.2); GFR NON-AFRICAN AMERICAN > 60
[2018-07-02 07:02] LABS: WHITE BLOOD COUNT 1.8 K/uL (4.8-10.8)
[2018-07-02] MEDS: Ciprofloxacin 400mg/200ml D5W 400 MG/200 ML BAG IVPB SCH ×2 (08:03→20:57)
[2018-07-02] MEDS: DEXTROSE 5% IV SCH (08:08)
[2018-07-02] MEDS: THIAMINE IV SCH (08:08)
[2018-07-02] MEDS: WATER IV SCH (08:08)
--- NOTE | 2018-07-02 11:29 | CP.PCM.PN ---
Subjective - Date & Time of Evaluation Date of Evaluation: 07/02/18 Time of Evaluation: 11:26 - Subjective Subjective: Remains clinically stable with normal vitals and stable Hgb. Objective - Vital Signs/Intake and Output Vital Signs (last 24 hours): Temp Pulse Resp BP Pulse Ox 98.0 F 64 13 108/69 100 07/02/18 08:00 07/02/18 09:59 07/02/18 09:59 07/02/18 09:59 07/02/18 09:59 Intake and Output: 07/02/18 07/02/18 06:59 18:59 Intake Total 1200 520 Output Total 1650 400 Balance -450 120 - Medications Medications: Current Medications Chlordiazepoxide (Librium) 25 mg PO Q8 SHARIF Last Admin: 07/02/18 08:07 Dose: 25 mg Ciprofloxacin (Cipro 400mg/200ml Dsw) 400 mg in 200 mls @ 200 mls/hr IVPB Q12 SHARIF; Protocol Last Admin: 07/02/18 08:03 Dose: 200 mls/hr Folic Acid 1 mg/ Sodium (Chloride) 100.2 mls @ 60 mls/hr IVPB DAILY SHARIF Last Admin: 07/02/18 08:04 Dose: 60 mls/hr Pantoprazole Sodium 40 mg/ (Sodium Chloride) 100 mls @ 20 mls/hr IVPB Q5H SHARIF Last Admin: 07/02/18 04:04 Dose: 20 mls/hr Octreotide Acetate 1,250 mcg/ (Sodium Chloride) 252.5 mls @ 10.1 mls/hr IV .Q24H SHARIF; Protocol Last Admin: 07/01/18 15:04 Dose: 10.1 mls/hr Thiamine HCl 100 mg/ Dextrose 101 mls @ 100 mls/hr IV DAILY SHARIF Last Admin: 07/02/18 08:08 Dose: 100 mls/hr Dextrose/Sodium Chloride (Dextrose 5%/0.9% Ns 1000 Ml) 1,000 mls @ 50 mls/hr IV .Q20H SHARIF Stop: 07/02/18 22:41 Last Admin: 07/01/18 23:05 Dose: 50 mls/hr Lorazepam (Ativan) 1 mg IVP Q4H PRN PRN Reason: Symptoms of alcohol withdrawl Ondansetron HCl (Zofran Inj) 4 mg IVP Q6 PRN PRN Reason: Nausea/Vomiting - Labs Labs: 07/02/18 05:37 07/02/18 05:37 PT 15.7 Seconds (9.8-13.1) H 07/01/18 05:30 INR 1.4 07/01/18 05:30 APTT 34.9 Seconds (25.6-37.1) 07/01/18 05:30 - Head Exam Head Exam: ATRAUMATIC - Eye Exam Eye Exam: Normal appearance - ENT Exam ENT Exam: Mucous Membranes Moist - Respiratory Exam Respiratory Exam: Clear to Ausculation Bilateral - Cardiovascular Exam Cardiovascular Exam: REGULAR RHYTHM, +S1, +S2 - GI/Abdominal Exam GI & Abdominal Exam: Soft Assessment and Plan (1) UGIB (upper gastrointestinal bleed) Assessment & Plan: No active bleeding since day of admission. Has h/o esophageal varices. For upper endoscopy Tuesday. Status: Acute
--- NOTE | 2018-07-02 13:43 | CP.PCM.PN ---
<Mckenzie Teresa - Last Filed: 07/02/18 13:58> Subjective - Date & Time of Evaluation Date of Evaluation: 07/02/18 Time of Evaluation: 13:38 - Subjective Subjective: 43 YO M seen at bedside this morning doing well. His Hb has stabilized after the transfusions. He has mild headache. He has been tolerating liquids without any difficulty. Has not had any vomiting. He did have a black bowl movement. - EGD scheduled for tomorrow morning - CIWA score of 2 - Denies any chest pain, SOB, N/V/D - Will transfer patient to Med surg from ICU Objective - Vital Signs/Intake and Output Vital Signs (last 24 hours): Temp Pulse Resp BP Pulse Ox 98.2 F 74 21 100/51 L 96 07/02/18 13:31 07/02/18 13:31 07/02/18 13:31 07/02/18 13:31 07/02/18 12:00 Intake and Output: 07/02/18 07/02/18 06:59 18:59 Intake Total 1200 730 Output Total 1650 850 Balance -450 -120 - Medications Medications: Current Medications Chlordiazepoxide (Librium) 25 mg PO Q8 SHARIF Last Admin: 07/02/18 08:07 Dose: 25 mg Ciprofloxacin (Cipro 400mg/200ml Dsw) 400 mg in 200 mls @ 200 mls/hr IVPB Q12 SHARIF; Protocol Last Admin: 07/02/18 08:03 Dose: 200 mls/hr Folic Acid 1 mg/ Sodium (Chloride) 100.2 mls @ 60 mls/hr IVPB DAILY SHARIF Last Admin: 07/02/18 08:04 Dose: 60 mls/hr Pantoprazole Sodium 40 mg/ (Sodium Chloride) 100 mls @ 20 mls/hr IVPB Q5H SHARIF Last Admin: 07/02/18 12:42 Dose: 20 mls/hr Octreotide Acetate 1,250 mcg/ (Sodium Chloride) 252.5 mls @ 10.1 mls/hr IV .Q24H SHARIF; Protocol Last Admin: 07/02/18 12:41 Dose: 10.1 mls/hr Thiamine HCl 100 mg/ Dextrose 101 mls @ 100 mls/hr IV DAILY SHARIF Last Admin: 07/02/18 08:08 Dose: 100 mls/hr Dextrose/Sodium Chloride (Dextrose 5%/0.9% Ns 1000 Ml) 1,000 mls @ 50 mls/hr IV .Q20H SHARIF Stop: 07/02/18 22:41 Last Admin: 07/01/18 23:05 Dose: 50 mls/hr Lorazepam (Ativan) 1 mg IVP Q4H PRN PRN Reason: Symptoms of alcohol withdrawl Ondansetron HCl (Zofran Inj) 4 mg IVP Q6 PRN PRN Reason: Nausea/Vomiting - Labs Labs: 07/02/18 05:37 07/02/18 05:37 PT 15.7 Seconds (9.8-13.1) H 07/01/18 05:30 INR 1.4 07/01/18 05:30 APTT 34.9 Seconds (25.6-37.1) 07/01/18 05:30 - Constitutional Appears: No Acute Distress - Head Exam Head Exam: NORMAL INSPECTION - Eye Exam Eye Exam: Normal appearance - ENT Exam ENT Exam: Mucous Membranes Moist - Neck Exam Neck Exam: Full ROM - Cardiovascular Exam Cardiovascular Exam: REGULAR RHYTHM, +S1, +S2, +S4 - GI/Abdominal Exam GI & Abdominal Exam: Distended, Soft, Tenderness (generalized), Normal Bowel Sounds. absent: Guarding, Rebound - Extremities Exam Extremities Exam: Normal Inspection. absent: Tenderness - Neurological Exam Neurological Exam: Alert, Awake, CN II-XII Intact, Oriented x3 - Skin Skin Exam: Warm Assessment and Plan - Assessment and Plan (Free Text) Assessment: 43 year old male with PMHx of liver cirrhosis, esophageal varices, upper GI bleeding diagnosed in 2017 and alcohol use disorder presents to the emergency department for evaluation of hematemesis. Patient reports he had episodes of hematemesis around 8:30 am this morning that lasted for 5 minutes. Patient reports he has diffuse intermittent abdominal pain and abdominal distension for 2 weeks. Patient admits to be chronic alcohol drinker and drinks a pint of vodka daily. States he had multiple tequila drinks along with a pint of vodka yesterday. Denies any melena, rectal bleeding, diarrhea, constipation, fever, or chills. Denies use of aspirin or NSAIDS. 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 States last blood transfusion, EGD with esophageal banding performed at [facility] in 12/2016. Patient is admitted for management of upper GI bleeding. Upper GI Bleeding likely secondary to alcoholic gastritis vs esophageal varices - Transfer to telemetry -Stable BP -s/p 2 units of PRBC and 3 units of platelets and 1 unit of FFP -H&H 8.125.8 this morning -Art-Blatchford Bleeding score: 9 -GI Consult: Dr. Leger, recs appreciated. -c/w Pantoprazole IVP -c/w Ciprofloxacin for SBP prophylaxis. -tolerated clear fluids - 1 Unit platelets ordered to tranfuse today - NPO after midnight. EGD scheduled for AM Pancytopenia secondary to liver cirrhosis -s/p 2 units of PRBC and 3 units of platelets and 1 unit of FFP - 1 more unit of Platelets ordered today -CBC: 1.8>8.06/23.8<37 -f/u CBC in the am Thrombocytopenia s/p 3 units of platelets 1 more unit ordered today Anemia likely secondary to acute blood loss -s/p 2 units of PRBC -H&H 8.06/23.8 -f/u CBC History Alcoholic Liver cirrhosis secondary to ETOH use disorder -MELD score 11 -GI consulted: f/u recommedation -c/w Ciprofloxacin for SBP prophylaxis Alcohol use disorder -ETOH for the last 17 years. -Patient advised to stop drinking -No withdrawal symptoms today -CIWA score 2 -Alcohol withdrawal protocol -Librium 25 mg po q8 -f/u symptoms DVT prophylaxis -Platelets 37 -SCDs for now Diet -Clear liquid Code status -Full code <Laura Blake - Last Filed: 07/02/18 15:01> Objective - Vital Signs/Intake and Output Vital Signs (last 24 hours): Temp Pulse Resp BP Pulse Ox 98.4 F 66 18 109/67 100 07/02/18 14:33 07/02/18 14:33 07/02/18 14:33 07/02/18 14:33 07/02/18 14:00 Intake and Output: 07/02/18 07/02/18 06:59 18:59 Intake Total 1200 850 Output Total 1650 850 Balance -450 0 - Medications Medications: Current Medications Chlordiazepoxide (Librium) 25 mg PO Q8 SHARIF Last Admin: 07/02/18 08:07 Dose: 25 mg Ciprofloxacin (Cipro 400mg/200ml Dsw) 400 mg in 200 mls @ 200 mls/hr IVPB Q12 SHARIF; Protocol Last Admin: 07/02/18 08:03 Dose: 200 mls/hr Folic Acid 1 mg/ Sodium (Chloride) 100.2 mls @ 60 mls/hr IVPB DAILY SHARIF Last Admin: 07/02/18 08:04 Dose: 60 mls/hr Pantoprazole Sodium 40 mg/ (Sodium Chloride) 100 mls @ 20 mls/hr IVPB Q5H SHARIF Last Admin: 07/02/18 12:42 Dose: 20 mls/hr Octreotide Acetate 1,250 mcg/ (Sodium Chloride) 252.5 mls @ 10.1 mls/hr IV .Q24H SHARIF; Protocol Last Admin: 07/02/18 12:41 Dose: 10.1 mls/hr Thiamine HCl 100 mg/ Dextrose 101 mls @ 100 mls/hr IV DAILY SHARIF Last Admin: 07/02/18 08:08 Dose: 100 mls/hr Dextrose/Sodium Chloride (Dextrose 5%/0.9% Ns 1000 Ml) 1,000 mls @ 50 mls/hr IV .Q20H SHARIF Stop: 07/02/18 22:41 Last Admin: 07/01/18 23:05 Dose: 50 mls/hr Lorazepam (Ativan) 1 mg IVP Q4H PRN PRN Reason: Symptoms of alcohol withdrawl Ondansetron HCl (Zofran Inj) 4 mg IVP Q6 PRN PRN Reason: Nausea/Vomiting - Labs Labs: 07/02/18 05:37 07/02/18 05:37 PT 15.7 Seconds (9.8-13.1) H 07/01/18 05:30 INR 1.4 07/01/18 05:30 APTT 34.9 Seconds (25.6-37.1) 07/01/18 05:30 Attending/Attestation - Attestation I have personally seen and examined this patient.: Yes I have fully participated in the care of the patient.: Yes I have reviewed all pertinent clinical information, including history, physical exam and plan: Yes Notes (Text): Upper GI Bleed prob sec to Alcohol Gastritis r/o Variceal Bleed Acute Blood Loss Anemia due UGI Alcoholic Liver Cirrhosis with Thrombocytopenia, Coagulopathy Pancytopenia due to Cirrhosis and from ETOH - H/H stable - no further bleeding - Plan for EGD in am - cont Octreotide and Protonix drip
[2018-07-02] MEDS: Dextrose 5%/0.9% NS 1,000 ML IV SCH (22:53)
[2018-07-03] MEDS: Pantoprazole 40 MG in Sodium Chloride 0.9% 100 ML IVPB SCH ×4 (01:48→21:34)
[2018-07-03] MEDS ORDERED: Morphine 4 MG/ML VIAL IVP ONE (04:58)
[2018-07-03 05:48] LABS: BASO % 1.1 % (0.0-2.0); EOS # 0.2 K/uL (0.0-0.7); LYMPH # 0.3 K/uL (1.0-4.3); MEAN CELL VOLUME 84.3 fl (80.0-94.0); MEAN CORPUSCULAR HEMOGLOBIN 26.3 pg (27.0-31.0); MEAN CORPUSCULAR HGB CONC 31.2 g/dL (33.0-37.0); MEAN PLATELET VOLUME 8.6 fl (7.2-11.7); MONO # 0.2 K/uL (0.0-0.8); MONO % 10.6 % (0.0-10.0); NEUT % 59.3 % (50.0-75.0); NRBC % 0.5 % (0.0-0.0); RBC 3.06 Mil/uL (4.40-5.90); RED CELL DISTRIBUTION WIDTH 20.2 % (11.5-14.5)
[2018-07-03 05:59] LABS: WHITE BLOOD COUNT 1.7 K/uL (4.8-10.8)
[2018-07-03 06:05] LABS: ALB/GLOB RATIO 0.8 (1.0-2.1); ALBUMIN 3.1 g/dL (3.5-5.0); ALT/SGPT 96 U/L (21-72); AST/SGOT 208 U/L (17-59); BLOOD UREA NITROGEN 9 mg/dl (9-20); CALCIUM 7.9 mg/dL (8.4-10.2); GFR NON-AFRICAN AMERICAN > 60
--- NOTE | 2018-07-03 08:32 | CP.PCM.PN ---
<Sultan Shalom - Last Filed: 07/03/18 12:25> Subjective - Date & Time of Evaluation Date of Evaluation: 07/03/18 Time of Evaluation: 09:50 - Subjective Subjective: Patient seen and examined in ICU this morning with Dr. Blake No acute overnight events Afebrile with stable vitals Patient reports he had dark BM yesterday. States he he had some abdominal pain this morning but improved now. Denies any nausea, vomiting, chest pain, dyspnea, headache, dizziness, fever or chills. Patient is in NPO for EGD today. Objective - Vital Signs/Intake and Output Vital Signs (last 24 hours): Temp Pulse Resp BP Pulse Ox 98 F 64 20 121/63 100 07/03/18 08:00 07/03/18 08:00 07/03/18 08:00 07/03/18 08:00 07/03/18 08:00 Intake and Output: 07/03/18 07/03/18 06:59 18:59 Intake Total 500 Output Total 1350 Balance -850 - Medications Medications: Current Medications Chlordiazepoxide (Librium) 25 mg PO Q8 [facility] Last Admin: 07/03/18 01:38 Dose: Not Given Ciprofloxacin (Cipro 400mg/200ml Dsw) 400 mg in 200 mls @ 200 mls/hr IVPB Q12 [facility]; Protocol Last Admin: 07/02/18 20:57 Dose: 200 mls/hr Folic Acid 1 mg/ Sodium (Chloride) 100.2 mls @ 60 mls/hr IVPB DAILY [facility] Last Admin: 07/02/18 08:04 Dose: 60 mls/hr Pantoprazole Sodium 40 mg/ (Sodium Chloride) 100 mls @ 20 mls/hr IVPB Q5H [facility] Last Admin: 07/03/18 07:08 Dose: 20 mls/hr Octreotide Acetate 1,250 mcg/ (Sodium Chloride) 252.5 mls @ 10.1 mls/hr IV .Q24H [facility]; Protocol Last Admin: 07/02/18 12:41 Dose: 10.1 mls/hr Thiamine HCl 100 mg/ Dextrose 101 mls @ 100 mls/hr IV DAILY [facility] Last Admin: 07/02/18 08:08 Dose: 100 mls/hr Dextrose/Sodium Chloride (Dextrose 5%/0.9% Ns 1000 Ml) 1,000 mls @ 50 mls/hr IV .Q20H [facility] Stop: 07/04/18 07:05 Lorazepam (Ativan) 1 mg IVP Q4H PRN PRN Reason: Symptoms of alcohol withdrawl Ondansetron HCl (Zofran Inj) 4 mg IVP Q6 PRN PRN Reason: Nausea/Vomiting - Labs Labs: 07/03/18 04:30 07/03/18 04:30 PT 15.7 Seconds (9.8-13.1) H 07/01/18 05:30 INR 1.4 07/01/18 05:30 APTT 34.9 Seconds (25.6-37.1) 07/01/18 05:30 - Constitutional Appears: No Acute Distress - Head Exam Head Exam: NORMAL INSPECTION - ENT Exam ENT Exam: Mucous Membranes Moist - Neck Exam Neck Exam: Normal Inspection. absent: Lymphadenopathy - Respiratory Exam Respiratory Exam: Clear to Ausculation Bilateral, NORMAL BREATHING PATTERN. absent: Rhonchi, Wheezes - Cardiovascular Exam Cardiovascular Exam: REGULAR RHYTHM, +S1, +S2 - GI/Abdominal Exam GI & Abdominal Exam: Distended, Soft, Tenderness (mild generalized), Normal Bowel Sounds. absent: Guarding, Rigid, Rebound - Extremities Exam Extremities Exam: Normal Capillary Refill, Normal Inspection. absent: Calf Tenderness - Neurological Exam Neurological Exam: Alert, Awake, Oriented x3 - Psychiatric Exam Psychiatric exam: Normal Affect, Normal Mood - Skin Skin Exam: Normal Color, Warm Assessment and Plan - Assessment and Plan (Free Text) Assessment: 43 year old male with PMHx of liver cirrhosis, esophageal varices, upper GI bleeding diagnosed in 2017 and alcohol use disorder presents to the emergency department for evaluation of hematemesis. Patient reports he had episodes of hematemesis around 8:30 am this morning that lasted for 5 minutes. Patient reports he has diffuse intermittent abdominal pain and abdominal distension for 2 weeks. Patient admits to be chronic alcohol drinker and drinks a pint of vodka daily. States he had multiple tequila drinks along with a pint of vodka yesterday. Denies any melena, rectal bleeding, diarrhea, constipation, fever, or chills. Denies use of aspirin or NSAIDS. 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 States last blood transfusion, EGD with esophageal banding performed at [facility] in 12/2016. Patient is admitted for management of upper GI bleeding. Upper GI Bleeding likely secondary to alcoholic gastritis vs esophageal varices -Transfer to telemetry -Stable BP -s/p 2 units of PRBC and 4 units of platelets and 1 unit of FFP -H&H 8.0/25.8 this morning -Art-Blatchford Bleeding score: 9 on admission. -GI Consult: Dr. Leger, recs appreciated. -c/w Pantoprazole IVP -c/w Ciprofloxacin for SBP prophylaxis. - NPO after midnight. EGD scheduled for today. 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 -Patient advised to stop drinking -No withdrawal symptoms today -CIWA score 2 -Alcohol withdrawal protocol -Librium 10 mg po q8 -f/u symptoms DVT prophylaxis -Platelets 37 -SCDs for now Diet -NPO for EGD today Code status -Full code <Laura Blake - Last Filed: 07/03/18 16:57> Objective - Vital Signs/Intake and Output Vital Signs (last 24 hours): Temp Pulse Resp BP Pulse Ox 97.5 F L 70 21 128/71 96 07/03/18 16:00 07/03/18 16:00 07/03/18 16:00 07/03/18 16:00 07/03/18 16:00 Intake and Output: 07/03/18 07/03/18 06:59 18:59 Intake Total 500 500 Output Total 1350 650 Balance -850 -150 - Medications Medications: Current Medications Chlordiazepoxide (Librium) 25 mg PO Q8 [facility] Last Admin: 07/03/18 09:17 Dose: 25 mg Folic Acid 1 mg/ Sodium (Chloride) 100.2 mls @ 60 mls/hr IVPB DAILY [facility] Last Admin: 07/03/18 09:15 Dose: 60 mls/hr Pantoprazole Sodium 40 mg/ (Sodium Chloride) 100 mls @ 20 mls/hr IVPB Q5H [facility] Last Admin: 07/03/18 15:52 Dose: 20 mls/hr Octreotide Acetate 1,250 mcg/ (Sodium Chloride) 252.5 mls @ 10.1 mls/hr IV .Q24H [facility]; Protocol Last Admin: 07/02/18 12:41 Dose: 10.1 mls/hr Thiamine HCl 100 mg/ Dextrose 101 mls @ 100 mls/hr IV DAILY [facility] Last Admin: 07/03/18 09:15 Dose: 100 mls/hr Dextrose/Sodium Chloride (Dextrose 5%/0.9% Ns 1000 Ml) 1,000 mls @ 50 mls/hr IV .Q20H [facility] Stop: 07/04/18 07:05 Lactated Ringer's (Lactated Ringer's) 1,000 mls @ 50 mls/hr IV .Q20H [facility] Lorazepam (Ativan) 1 mg IVP Q4H PRN PRN Reason: Symptoms of alcohol withdrawl Ondansetron HCl (Zofran Inj) 4 mg IVP Q6 PRN PRN Reason: Nausea/Vomiting - Labs Labs: 07/03/18 04:30 07/03/18 04:30 PT 15.7 Seconds (9.8-13.1) H 07/01/18 05:30 INR 1.4 07/01/18 05:30 APTT 34.9 Seconds (25.6-37.1) 07/01/18 05:30 Attending/Attestation - Attestation I have personally seen and examined this patient.: Yes I have fully participated in the care of the patient.: Yes I have reviewed all pertinent clinical information, including history, physical exam and plan: Yes Notes (Text): Acute Blood Loss Anemia sec to Upper GI Bleed prob due to Esophageal Varices vs Alcohol Gastritis -H/H now stable after transfusion of 2 units PRBC, no further bleed -plan for EGD - on Protonix drip, received Octreotide drip Alcoholic Cirrhosis Pancytopenia due to ETOH and Cirrhosis
[2018-07-03] MEDS: WATER IV SCH (09:15)
[2018-07-03] MEDS: THIAMINE IV SCH (09:15)
[2018-07-03] MEDS: DEXTROSE 5% IV SCH (09:15)
--- NOTE | 2018-07-03 12:58 | CP.CCUPN ---
CCU Subjective - Physician Review Subjective (Free Text): 07/03/18 13:27 The patient was Seen/interviewed and examined by me at the bedside during ICU round, Medical records reviewed and Management issues were discussed and formulated with the house staff. Events reviewed Patient Admitted with Upper GI Bleeding r/o variceal hemorrhage recurrence Vs, PUD Gastritis Patient S/P total 2 units of PRBC, 4 units of platelets and 1 unit of FFP Comfortable, in no apparent distress Afebrile, NSR on the monitor The only complaint of lower abdominal pain, well controlled No N/Vomiting NPO Scheduled for Endoscopy today This morning labs revealed stable H&H 8.0/25.8, Wbs 1.7, Plat 36 and Stable renal function Patient on antoprazole drip and Octreotide drip CCU Objective - Vital Signs / Intake & Output Vital Signs (Last 4 hours): Vital Signs Temp Pulse Resp BP Pulse Ox 07/03/18 12:00 98.1 F 66 17 132/81 95 07/03/18 09:00 70 21 121/63 93 L Intake and Output (Last 8hrs): Intake & Output 07/02/18 07/03/18 07/03/18 22:59 06:59 14:59 Intake Total 1625 300 500 Output Total 1350 800 650 Balance 275 -500 -150 Intake: IV 1010 300 500 Oral 400 Blood Product 205 Apheresis Plts Acda Lr 205 Irr Unit [id number] Other 10 Apheresis Plts Acda Lr 10 Irr Unit [id number] Output: Urine 1350 800 650 Urine, Voided 1350 800 650 - Physical Exam Head: Positive for: Atraumatic, Normocephalic Pupils: Positive for: PERRL Extroacular Muscles: Positive for: EOMI Conjunctiva: Positive for: Normal Mouth: Positive for: Moist Mucous Membranes Neck: Positive for: Normal Range of Motion, Trachea Midline. Negative for: Meningeal Signs, MIDLINE TENDERNESS, Paraspinal Tenderness, JVD, Lymphadenopathy, Bruit, Other Respiratory/Chest: Positive for: Clear to Auscultation, Good Air Exchange. Negative for: Respiratory Distress, Accessory Muscle Use Cardiovascular: Positive for: Regular Rate and Rhythm, Normal S1, S2, Peripheal Pulses Present. Negative for: Tachycardic, Bradycardic Abdomen: Positive for: Distention, Normal Bowel Sounds. Negative for: Tenderness Neurological: Positive for: GCS=15, CN II-XII Intact Skin: Positive for: Warm, Dry Psychiatric: Positive for: Alert, Oriented x 3, Normal Insight - Medications Active Medications: Active Medications Generic Name Dose Route Start Last Admin Trade Name Freq PRN Reason Stop Dose Admin Chlordiazepoxide 25 mg 07/01/18 17:00 07/03/18 09:17 Librium PO 25 mg Q8 [facility] Administration Folic Acid 1 mg/ Sodium 100.2 mls @ 60 mls/hr 07/01/18 09:00 07/03/18 09:15 Chloride IVPB 60 mls/hr DAILY [facility] Administration Pantoprazole Sodium 40 mg/ 100 mls @ 20 mls/hr 07/01/18 00:30 07/03/18 07:08 Sodium Chloride IVPB 20 mls/hr Q5H [facility] Administration 8 MG/HR Octreotide Acetate 1,250 mcg/ 252.5 mls @ 10.1 mls/hr 06/30/18 22:46 07/02/18 12:41 Sodium Chloride IV 10.1 mls/hr .Q24H [facility] Administration Protocol 50 MCG/HR Thiamine HCl 100 mg/ Dextrose 101 mls @ 100 mls/hr 07/01/18 09:00 07/03/18 09:15 IV 100 mls/hr DAILY [facility] Administration Dextrose/Sodium Chloride 1,000 mls @ 50 mls/hr 07/03/18 07:15 Dextrose 5%/0.9% Ns 1000 Ml IV 07/04/18 07:05 .Q20H [facility] Lorazepam 1 mg 06/30/18 22:46 Ativan IVP Q4H PRN Symptoms of alcohol withdrawl Ondansetron HCl 4 mg 06/30/18 22:46 Zofran Inj IVP Q6 PRN Nausea/Vomiting - Patient Studies Lab Studies: Microbiology Studies 06/30/18 09:00 MRSA Culture (Admit) - Final Naris MRSA NOT DETECTED Lab Studies 07/03/18 07/03/18 Range/Units 04:30 04:30 WBC 1.7 L* (4.8-10.8) K/uL RBC 3.06 L (4.40-5.90) Mil/uL Hgb 8.0 L (12.0-18.0) g/dL Hct 25.8 L (35.0-51.0) % MCV 84.3 (80.0-94.0) fl MCH 26.3 L (27.0-31.0) pg MCHC 31.2 L (33.0-37.0) g/dL RDW 20.2 H (11.5-14.5) % Plt Count 36 L (130-400) K/uL MPV 8.6 (7.2-11.7) fl Neut % (Auto) 59.3 (50.0-75.0) % Lymph % (Auto) 20.0 (20.0-40.0) % [place] % (Auto) 10.6 H (0.0-10.0) % Eos % (Auto) 9.0 H (0.0-4.0) % Baso % (Auto) 1.1 (0.0-2.0) % Neut # (Auto) 1.0 L (1.8-7.0) K/uL Lymph # (Auto) 0.3 L (1.0-4.3) K/uL [place] # (Auto) 0.2 (0.0-0.8) K/uL Eos # (Auto) 0.2 (0.0-0.7) K/uL Baso # (Auto) 0.0 (0.0-0.2) K/uL Sodium 140 (132-148) mmol/l Potassium 3.7 (3.6-5.0) MMOL/L Chloride 100 (98-107) mmol/L Carbon Dioxide 28 (22-30) mmol/L Anion Gap 16 (10-20) BUN 9 (9-20) mg/dl Creatinine 0.7 L (0.8-1.5) mg/dl Est GFR ( Amer) > 60 Est GFR (Non-Af Amer) > 60 Random Glucose 103 (75-110) mg/dL Calcium 7.9 L (8.4-10.2) mg/dL Total Bilirubin 2.2 H (0.2-1.3) mg/dl AST 208 H (17-59) U/L ALT 96 H (21-72) U/L Alkaline Phosphatase 73 (38-126) U/L Total Protein 7.1 (6.3-8.2) G/DL Albumin 3.1 L (3.5-5.0) g/dL Globulin 4.0 H (2.2-3.9) gm/dL Albumin/Globulin Ratio 0.8 L (1.0-2.1) Laboratory Results - last 24 hr 07/03/18 07/03/18 04:30 04:30 WBC 1.7 L* RBC 3.06 L Hgb 8.0 L Hct 25.8 L MCV 84.3 MCH 26.3 L MCHC 31.2 L RDW 20.2 H Plt Count 36 L MPV 8.6 Neut % (Auto) 59.3 Lymph % (Auto) 20.0 [place] % (Auto) 10.6 H Eos % (Auto) 9.0 H Baso % (Auto) 1.1 Neut # (Auto) 1.0 L Lymph # (Auto) 0.3 L [place] # (Auto) 0.2 Eos # (Auto) 0.2 Baso # (Auto) 0.0 Sodium 140 Potassium 3.7 Chloride 100 Carbon Dioxide 28 Anion Gap 16 BUN 9 Creatinine 0.7 L Est GFR ( Amer) > 60 Est GFR (Non-Af Amer) > 60 Random Glucose 103 Calcium 7.9 L Total Bilirubin 2.2 H AST 208 H ALT 96 H Alkaline Phosphatase 73 Total Protein 7.1 Albumin 3.1 L Globulin 4.0 H Albumin/Globulin Ratio 0.8 L Review of Systems - Cardiovascular Cardiovascular: absent: As Per HPI, Acrocyanosis, Chest Pain, Chest Pain at Rest, Chest Pain with Activity, Claudication, Diaphoresis, Dyspnea, Dyspnea on Exertion, Edema, Irregular Heart Rhythm, Pain Radiating to Arm/Neck/Jaw, Leg Edema, Leg Ulcers, Lightheadedness, Orthopnea, Palpitations, Paroxysmal Nocturnal Dyspnea, Pedal Edema, Radiating Pain, Rapid Heart Rate, Slow Heart Rate, Syncope, Other, UNREMARKABLE - Respiratory Respiratory: absent: As Per HPI, Cough, Dyspnea, Hemoptysis, Dyspnea on Exertion, Wheezing, Snoring, Stridor, Pain on Inspiration, Chest Congestion, Excessive Mucous Production, Change in Mucous Color, Pain with Coughing, Other, UNREMARKABLE Critical Care Progress Note - Extremities/Vascular Does the Patient have a Central Venous Catheter?: No Does the Patient need a Central Venous Catheter?: No Does the Patient have a [place] Catheter?: No Does the Patient need a [place] Catheter?: No - Nutrition Nutrition: Nutrition Category Date Time Status NPO Diet [DIET] Diets 07/02/18 Dinner Active Assessment/Plan (1) UGIB (upper gastrointestinal bleed) Current Visit: Yes Status: Acute Priority: High (2) Anemia Current Visit: Yes Status: Acute Priority: High (3) Thrombocytopenia Current Visit: Yes Status: Acute Priority: High (4) Alcoholic cirrhosis of liver Current Visit: Yes Status: Chronic Priority: High - Assessment and Plan (Free Text) Assessment: - Acute upper GI bleed - Anemia sec to acute Blood loss - Continue with ICU care for hemodynamic monitoring - Two large bore peripheral catheters - Suplemental O2 - NPO - Volume resuscitation - IV Hydration - Pantoprazole drip - Octreotide drip - Serial CBCs q 8 /HR - Active type and screen sent today - Endoscopy today - DVT PPx: SCD
[2018-07-03] MEDS: Lactated Ringer's 1,000 ML IV SCH (21:33)
--- NOTE | 2018-07-03 22:03 | CP.PCM.PN ---
Subjective - Date & Time of Evaluation Date of Evaluation: 07/03/18 Time of Evaluation: 14:00 - Subjective Subjective: Patient with no further bleeding.Platelet count under 50 K and upper endoscopy postponed. Transfuse platelets in the morning and will reschedule upper endoscopy. Objective - Vital Signs/Intake and Output Vital Signs (last 24 hours): Temp Pulse Resp BP Pulse Ox 97.5 F L 103 H 22 110/74 93 L 07/03/18 16:00 07/03/18 17:00 07/03/18 17:00 07/03/18 17:00 07/03/18 17:00 Intake and Output: 07/03/18 07/04/18 18:59 06:59 Intake Total 900 100 Output Total 950 400 Balance -50 -300 - Medications Medications: Current Medications Chlordiazepoxide (Librium) 10 mg PO Q8 [facility] Last Admin: 07/03/18 18:15 Dose: 10 mg Folic Acid 1 mg/ Sodium (Chloride) 100.2 mls @ 60 mls/hr IVPB DAILY [facility] Last Admin: 07/03/18 09:15 Dose: 60 mls/hr Pantoprazole Sodium 40 mg/ (Sodium Chloride) 100 mls @ 20 mls/hr IVPB Q5H [facility] Last Admin: 07/03/18 21:34 Dose: 20 mls/hr Octreotide Acetate 1,250 mcg/ (Sodium Chloride) 252.5 mls @ 10.1 mls/hr IV .Q24H [facility]; Protocol Last Admin: 07/03/18 18:15 Dose: 10.1 mls/hr Thiamine HCl 100 mg/ Dextrose 101 mls @ 100 mls/hr IV DAILY [facility] Last Admin: 07/03/18 09:15 Dose: 100 mls/hr Dextrose/Sodium Chloride (Dextrose 5%/0.9% Ns 1000 Ml) 1,000 mls @ 50 mls/hr IV .Q20H [facility] Stop: 07/04/18 07:05 Lactated Ringer's (Lactated Ringer's) 1,000 mls @ 50 mls/hr IV .Q20H [facility] Last Admin: 07/03/18 21:33 Dose: 50 mls/hr Lorazepam (Ativan) 1 mg IVP Q4H PRN PRN Reason: Symptoms of alcohol withdrawl Ondansetron HCl (Zofran Inj) 4 mg IVP Q6 PRN PRN Reason: Nausea/Vomiting - Labs Labs: 07/03/18 04:30 07/03/18 04:30 PT 15.7 Seconds (9.8-13.1) H 07/01/18 05:30 INR 1.4 07/01/18 05:30 APTT 34.9 Seconds (25.6-37.1) 07/01/18 05:30 Assessment and Plan (1) UGIB (upper gastrointestinal bleed) Status: Acute
[2018-07-04] MEDS: Pantoprazole 40 MG in Sodium Chloride 0.9% 100 ML IVPB SCH ×4 (02:06→22:26)
[2018-07-04 05:24] LABS: HEMOGLOBIN 8.6 g/dL (12.0-18.0); MEAN CELL VOLUME 84.7 fl (80.0-94.0); MEAN CORPUSCULAR HEMOGLOBIN 26.6 pg (27.0-31.0); MEAN CORPUSCULAR HGB CONC 31.4 g/dL (33.0-37.0); RBC 3.24 Mil/uL (4.40-5.90); RED CELL DISTRIBUTION WIDTH 20.5 % (11.5-14.5)
[2018-07-04 05:35] LABS: ALB/GLOB RATIO 0.9 (1.0-2.1); ALBUMIN 3.4 g/dL (3.5-5.0); ALT/SGPT 91 U/L (21-72); AST/SGOT 172 U/L (17-59); BLOOD UREA NITROGEN 8 mg/dl (9-20); CALCIUM 8.4 mg/dL (8.4-10.2); GFR NON-AFRICAN AMERICAN > 60
[2018-07-04 05:36] LABS: WHITE BLOOD COUNT 1.9 K/uL (4.8-10.8)
[2018-07-04 08:30] LABS: HEMOGLOBIN 8.4 g/dL (12.0-18.0); MEAN CORPUSCULAR HEMOGLOBIN 26.6 pg (27.0-31.0); MEAN CORPUSCULAR HGB CONC 31.6 g/dL (33.0-37.0); RBC 3.15 Mil/uL (4.40-5.90); RED CELL DISTRIBUTION WIDTH 20.7 % (11.5-14.5); WHITE BLOOD COUNT 2.5 K/uL (4.8-10.8)
[2018-07-04] MEDS: DEXTROSE 5% IV SCH (08:49)
[2018-07-04] MEDS: THIAMINE IV SCH (08:49)
[2018-07-04] MEDS: WATER IV SCH (08:49)
[2018-07-04] MEDS ORDERED: Propofol 10 mg/ml Inj (20 ML) ONE (11:09)
[2018-07-04] MEDS ORDERED: EPINEPHrine 1 mg/ml (1:1000) Inj ONE (11:11)
[2018-07-04] MEDS: Lactated Ringer's 1,000 ML IV SCH (12:05)
--- NOTE | 2018-07-04 14:18 | CP.PCM.PN ---
<Sultan Shalom - Last Filed: 07/04/18 16:04> Subjective - Date & Time of Evaluation Date of Evaluation: 07/04/18 Time of Evaluation: 09:40 - Subjective Subjective: Patient seen and examined this morning. No acute overnight events. Aferbrile with stable BP Patient reports he had dark BM with bright blood this morning. Denies any abdominal pajn, nausea, vomiting, chest pain, dyspnea, headache, dizziness, fever or chills. Patient is to have EGD tomorrow for band ligation of esophageal varices. Objective - Vital Signs/Intake and Output Vital Signs (last 24 hours): Temp Pulse Resp BP Pulse Ox 98.6 F 60 18 138/80 97 07/04/18 13:20 07/04/18 14:00 07/04/18 14:00 07/04/18 14:00 07/04/18 14:00 Intake and Output: 07/04/18 07/04/18 06:59 18:59 Intake Total 420 1144 Output Total 1700 Balance -1280 1144 - Medications Medications: Current Medications Chlordiazepoxide (Librium) 10 mg PO Q8 [facility] Last Admin: 07/04/18 01:00 Dose: Not Given Folic Acid 1 mg/ Sodium (Chloride) 100.2 mls @ 60 mls/hr IVPB DAILY [facility] Last Admin: 07/04/18 08:19 Dose: 60 mls/hr Pantoprazole Sodium 40 mg/ (Sodium Chloride) 100 mls @ 20 mls/hr IVPB Q5H [facility] Last Admin: 07/04/18 12:28 Dose: 20 mls/hr Octreotide Acetate 1,250 mcg/ (Sodium Chloride) 252.5 mls @ 10.1 mls/hr IV .Q24H [facility]; Protocol Last Admin: 07/03/18 18:15 Dose: 10.1 mls/hr Thiamine HCl 100 mg/ Dextrose 101 mls @ 100 mls/hr IV DAILY [facility] Last Admin: 07/04/18 08:49 Dose: 100 mls/hr Lactated Ringer's (Lactated Ringer's) 1,000 mls @ 50 mls/hr IV .Q20H [facility] Last Admin: 07/04/18 12:05 Dose: 100 mls Lorazepam (Ativan) 1 mg IVP Q4H PRN PRN Reason: Symptoms of alcohol withdrawl Ondansetron HCl (Zofran Inj) 4 mg IVP Q6 PRN PRN Reason: Nausea/Vomiting - Labs Labs: 07/04/18 08:20 07/04/18 04:30 PT 15.7 Seconds (9.8-13.1) H 07/01/18 05:30 INR 1.4 07/01/18 05:30 APTT 34.9 Seconds (25.6-37.1) 07/01/18 05:30 - Constitutional Appears: Non-toxic, No Acute Distress - Head Exam Head Exam: NORMAL INSPECTION - ENT Exam ENT Exam: Mucous Membranes Moist - Respiratory Exam Respiratory Exam: Clear to Ausculation Bilateral, NORMAL BREATHING PATTERN. absent: Rhonchi, Wheezes - Cardiovascular Exam Cardiovascular Exam: REGULAR RHYTHM, +S1, +S2 - GI/Abdominal Exam GI & Abdominal Exam: Distended, Soft, Normal Bowel Sounds. absent: Guarding, Tenderness, Rebound - Extremities Exam Extremities Exam: Normal Inspection. absent: Calf Tenderness - Neurological Exam Neurological Exam: Alert, Awake, Oriented x3 - Psychiatric Exam Psychiatric exam: Normal Affect, Normal Mood - Skin Skin Exam: Normal Color, Warm Assessment and Plan - Assessment and Plan (Free Text) Assessment: 43 year old male with PMHx of liver cirrhosis, esophageal varices, upper GI bleeding diagnosed in 2017 and alcohol use disorder presents to the emergency department for evaluation of hematemesis. Patient reports he had e pisodes of hematemesis around 8:30 am this morning that lasted for 5 minutes. Patient reports he has diffuse intermittent abdominal pain and abdominal distension for 2 weeks. Patient admits to be chronic alcohol drinker and drinks a pint of vodka daily. States he had multiple tequila drinks along with a pint of vodka yesterday. Denies any melena, rectal bleeding, diarrhea, constipation, fever, or chills. Denies use of aspirin or NSAIDS. 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 States last blood transfusion, EGD with esophageal banding performed at [facility] in 12/2016. Patient is admitted for management of acute upper GI bleeding. Acute Blood Loss Anemia sec to Upper GI Bleed prob due to Esophageal Varices -Transfer to telemetry -Stable BP -s/p 2 units of PRBC and 6 units of platelets and 1 unit of FFP -H&H 8.4/26.5 this morning -Art-Blatchford Bleeding score: 9 on admission. -GI Consult: Dr. Leger, recs appreciated. -c/w Pantoprazole IVP -c/w Ciprofloxacin for SBP prophylaxis. -had EGD today which showed grade III esophageal varices. Esophageal banding not done because patient did not have updated blood type and cross. Patient will have EGD tomorrow again as per Dr. Leger. Pancytopenia secondary to alcoholic cirrhosis/ Esophageal varices -s/p 2 units of PRBC and 6 units of platelets and 1 unit of FFP -CBC: 2.5>8.4/26.5<45 -f/u CBC in the am History Alcoholic Liver cirrhosis secondary to ETOH use disorder -MELD score 11 -GI consulted: f/u recommedation -c/w Ciprofloxacin for SBP prophylaxis Alcohol use disorder -ETOH for the last 17 years. -Patient advised to stop drinking -No withdrawal symptoms today -CIWA score 2 on admission -Alcohol withdrawal protocol -Librium 10 mg po q8 -f/u symptoms DVT prophylaxis -Platelets 37 -SCDs for now Diet -Clear liquid, NPO after midnight Code status -Full code <Laura Blake - Last Filed: 07/04/18 16:58> Objective - Vital Signs/Intake and Output Vital Signs (last 24 hours): Temp Pulse Resp BP Pulse Ox 98.2 F 70 17 132/80 94 L 07/04/18 16:00 07/04/18 16:00 07/04/18 16:00 07/04/18 16:00 07/04/18 16:00 Intake and Output: 07/04/18 07/04/18 06:59 18:59 Intake Total 420 1144 Output Total 1700 Balance -1280 1144 - Medications Medications: Current Medications Chlordiazepoxide (Librium) 10 mg PO Q8 [facility] Last Admin: 07/04/18 01:00 Dose: Not Given Folic Acid 1 mg/ Sodium (Chloride) 100.2 mls @ 60 mls/hr IVPB DAILY [facility] Last Admin: 07/04/18 08:19 Dose: 60 mls/hr Pantoprazole Sodium 40 mg/ (Sodium Chloride) 100 mls @ 20 mls/hr IVPB Q5H [facility] Last Admin: 02/05/19 12:28 Dose: 20 mls/hr Octreotide Acetate 1,250 mcg/ (Sodium Chloride) 252.5 mls @ 10.1 mls/hr IV .Q24H [facility]; Protocol Last Admin: 07/03/18 18:15 Dose: 10.1 mls/hr Thiamine HCl 100 mg/ Dextrose 101 mls @ 100 mls/hr IV DAILY [facility] Last Admin: 07/04/18 08:49 Dose: 100 mls/hr Lactated Ringer's (Lactated Ringer's) 1,000 mls @ 50 mls/hr IV .Q20H [facility] Last Admin: 07/04/18 12:05 Dose: 100 mls Lorazepam (Ativan) 1 mg IVP Q4H PRN PRN Reason: Symptoms of alcohol withdrawl Ondansetron HCl (Zofran Inj) 4 mg IVP Q6 PRN PRN Reason: Nausea/Vomiting - Labs Labs: 07/04/18 08:20 07/04/18 04:30 PT 15.7 Seconds (9.8-13.1) H 07/01/18 05:30 INR 1.4 07/01/18 05:30 APTT 34.9 Seconds (25.6-37.1) 07/01/18 05:30 Attending/Attestation - Attestation I have personally seen and examined this patient.: Yes I have fully participated in the care of the patient.: Yes I have reviewed all pertinent clinical information, including history, physical exam and plan: Yes
[2018-07-04] MEDS: Dextrose 5%/0.9% NS 1,000 ML IV SCH ×2 (22:18→22:19)
[2018-07-05] MEDS: Pantoprazole 40 MG in Sodium Chloride 0.9% 100 ML IVPB SCH ×2 (04:17→11:11)
[2018-07-05 05:57] LABS: HEMOGLOBIN 8.5 g/dL (12.0-18.0); MEAN CELL VOLUME 83.7 fl (80.0-94.0); MEAN CORPUSCULAR HEMOGLOBIN 26.8 pg (27.0-31.0); RBC 3.19 Mil/uL (4.40-5.90); RED CELL DISTRIBUTION WIDTH 21.5 % (11.5-14.5)
[2018-07-05 06:02] LABS: WHITE BLOOD COUNT 1.9 K/uL (4.8-10.8)
[2018-07-05] MEDS ORDERED: Ciprofloxacin 400mg/200ml D5W 400 MG/200 ML BAG IVPB SCH (09:00)
[2018-07-05] MEDS: DEXTROSE 5% IV SCH (09:07)
[2018-07-05] MEDS: WATER IV SCH (09:07)
[2018-07-05] MEDS: THIAMINE IV SCH (09:07)
--- NOTE | 2018-07-05 10:05 | CP.PCM.PN ---
Subjective - Date & Time of Evaluation Date of Evaluation: 07/05/18 Time of Evaluation: 09:20 - Subjective Subjective: Patient seen and examined this morning. No acute overnight events. Remains afebrile with stable vitals. Patient reports he had another dark BM with bright redblood this morning. Denies any abdominal pain, nausea, vomiting, chest pain, dyspnea, headache, dizziness, fever or chills. 2 units of platelets ordered and to be ready prior to going to EGD for variceal banding as per hem/onc recommendation. Objective - Vital Signs/Intake and Output Vital Signs (last 24 hours): Temp Pulse Resp BP Pulse Ox 98.5 F 69 18 112/75 95 07/05/18 08:00 07/05/18 08:00 07/05/18 08:00 07/05/18 08:00 07/05/18 08:00 Intake and Output: 07/05/18 07/05/18 06:59 18:59 Intake Total 1360 Balance 1360 - Medications Medications: Current Medications Chlordiazepoxide (Librium) 10 mg PO Q8 [facility] Last Admin: 07/05/18 09:05 Dose: Not Given Folic Acid 1 mg/ Sodium (Chloride) 100.2 mls @ 60 mls/hr IVPB DAILY [facility] Last Admin: 07/05/18 08:58 Dose: 60 mls/hr Pantoprazole Sodium 40 mg/ (Sodium Chloride) 100 mls @ 20 mls/hr IVPB Q5H [facility] Last Admin: 07/05/18 04:17 Dose: 20 mls/hr Octreotide Acetate 1,250 mcg/ (Sodium Chloride) 252.5 mls @ 10.1 mls/hr IV .Q24H [facility]; Protocol Last Admin: 07/04/18 22:21 Dose: Not Given Thiamine HCl 100 mg/ Dextrose 101 mls @ 100 mls/hr IV DAILY [facility] Last Admin: 07/05/18 09:07 Dose: 100 mls/hr Lactated Ringer's (Lactated Ringer's) 1,000 mls @ 50 mls/hr IV .Q20H [facility] Last Admin: 07/04/18 12:05 Dose: 100 mls Ciprofloxacin (Cipro 400mg/200ml Dsw) 400 mg in 200 mls @ 200 mls/hr IVPB Q12 [facility]; Protocol Last Admin: 07/05/18 08:57 Dose: 200 mls/hr Lorazepam (Ativan) 1 mg IVP Q4H PRN PRN Reason: Symptoms of alcohol withdrawl Ondansetron HCl (Zofran Inj) 4 mg IVP Q6 PRN PRN Reason: Nausea/Vomiting Propranolol HCl (Inderal) 10 mg PO DAILY [facility] Last Admin: 07/05/18 09:06 Dose: Not Given - Labs Labs: 07/05/18 04:20 07/04/18 04:30 PT 15.7 Seconds (9.8-13.1) H 07/01/18 05:30 INR 1.4 07/01/18 05:30 APTT 34.9 Seconds (25.6-37.1) 07/01/18 05:30 - Constitutional Appears: Non-toxic, No Acute Distress - Head Exam Head Exam: NORMAL INSPECTION - Eye Exam Eye Exam: Normal appearance - ENT Exam ENT Exam: Mucous Membranes Moist, Normal Oropharynx - Neck Exam Neck Exam: Full ROM, Normal Inspection - Respiratory Exam Respiratory Exam: Clear to Ausculation Bilateral, NORMAL BREATHING PATTERN. absent: Rhonchi, Wheezes - Cardiovascular Exam Cardiovascular Exam: REGULAR RHYTHM, +S1, +S2 - GI/Abdominal Exam GI & Abdominal Exam: Soft, Normal Bowel Sounds. absent: Distended, Guarding, Tenderness - Extremities Exam Extremities Exam: Normal Inspection. absent: Calf Tenderness - Neurological Exam Neurological Exam: Alert, Awake, Oriented x3 - Psychiatric Exam Psychiatric exam: Normal Affect, Normal Mood - Skin Skin Exam: Normal Color, Warm Assessment and Plan - Assessment and Plan (Free Text) Assessment: 43 year old male with PMHx of liver cirrhosis, esophageal varices, upper GI bleeding diagnosed in 2017 and alcohol use disorder presents to the emergency department for evaluation of hematemesis. Patient reports he had episodes of hematemesis around 8:30 am this morning that lasted for 5 minutes. Patient reports he has diffuse intermittent abdominal pain and abdominal distension for 2 weeks. Patient admits to be chronic alcohol drinker and drinks a pint of vodka daily. States he had multiple tequila drinks along with a pint of vodka yesterday. Denies any melena, rectal bleeding, diarrhea, constipation, fever, or chills. Denies use of aspirin or NSAIDS. Patient reports he does not follow up with [facility] information specialist outpatient in the past. States last blood transfusion, EGD with esophageal banding performed at [facility] in 12/2016. Patient is admitted for management of acute upper GI bleeding. Patient had EGD on 07/04/18 which showed grade III esophageal varices. Patient is to undergo esophageal banding today. Acute Blood Loss Anemia sec to Upper GI Bleed secondary to Esophageal Varices -Transfer to telemetry -Stable BP -s/p 2 units of PRBC and 6 units of platelets and 1 unit of FFP -H&H 8.5/26.7 this morning -[place] Bleeding score: 9 on admission. -GI Consult: Dr. Leger, recs appreciated. -c/w Pantoprazole IVP -c/w Ciprofloxacin for SBP prophylaxis. -had EGD on 07/04/18 which showed grade III esophageal varices. Esophageal banding not done because patient did not have updated blood type and cross. Patient will have EGD today again as per Dr. Leger. -Ordered 2 units of Platelets and to be infused prior to EGD Pancytopenia secondary to alcoholic cirrhosis/ Esophageal varices -s/p 2 units of PRBC and 6 units of platelets and 1 unit of FFP -CBC: 1.9>8.5/26.7<41 -f/u CBC in the am History Alcoholic Liver cirrhosis secondary to ETOH use disorder -MELD score 11 -GI consulted: f/u recommedation -c/w Ciprofloxacin for SBP prophylaxis Alcohol use disorder -ETOH for the last 17 years. -Patient advised to stop drinking -No withdrawal symptoms today -CIWA score 2 on admission -Alcohol withdrawal protocol -Librium 10 mg po q8 -f/u symptoms DVT prophylaxis -Platelets 37 -SCDs for now Diet -NPO Code status -Full code
--- NOTE | 2018-07-05 12:04 | CP.PCM.CON ---
History of Present Illness - History of Present Illness History of Present Illness: This is a 43 yrs old male with a long history of alcohol abuse. He has had many admissions with alcohol intoxications, and also with bleeding varices. He had capping done 1 yrs ago, but has continued to drink and now the splenoomegaly is more and due to hypersplenism and alcohol intoxication he has pancytopenia. His WBC ia 1.9, with a ANC of 1000. His hgb is 8.5gms ad platelets 41K. He was to have a endoscopy today but his platelet count was only 41, so a hematology consult was called. He needs to have the endoscopy so we need to transfuse him 2 units of platelets just prior to the procedure. He works as a specimen collector and drinks 1 bottle of vodka daily for te past 17 yrs. Past history all related to his alcohol abuse, GI bleeding, varices He smokes occasionally, but denies taking drugs Past Patient History - Infectious Disease Hx of Infectious Diseases: None - Past Medical History & Family History Past Medical History?: Yes - Past Social History Smoking Status: Former Smoker - CARDIAC Hx Cardiac Disorders: No - PULMONARY Hx Respiratory Disorders: No - NEUROLOGICAL Hx Neurological Disorder: No - HEENT Hx HEENT Problems: No - RENAL Hx Chronic Kidney Disease: No - ENDOCRINE/METABOLIC Hx Endocrine Disorders: No - HEMATOLOGICAL/ONCOLOGICAL Hx Blood Disorders: Yes Hx AIDS: No Hx Anemia: Yes Hx Blood Transfusions: Yes Hx Cirrhosis: Yes Hx Human Immunodeficiency Virus (HIV): No - INTEGUMENTARY Hx Dermatological Problems: No - MUSCULOSKELETAL/RHEUMATOLOGICAL Hx Musculoskeletal Disorders: No Hx Falls: No - GASTROINTESTINAL Hx Gastrointestinal Disorders: Yes Hx Esophageal Varices: Yes Other/Comment: cirrhosis - GENITOURINARY/GYNECOLOGICAL Hx Genitourinary Disorders: No - PSYCHIATRIC Hx Psychophysiologic Disorder: No Hx Substance Use: No - SURGICAL HISTORY Hx Surgeries: No - ANESTHESIA Hx Anesthesia: Yes Hx Anesthesia Reactions: No Hx Malignant Hyperthermia: No Meds Allergies/Adverse Reactions: Allergies Allergy/AdvReac Type Severity Reaction Status Date / Time Penicillins Allergy Verified 07/17/16 20:17 - Medications Medications: Current Medications Chlordiazepoxide (Librium) 10 mg PO Q8 [facility] Last Admin: 07/05/18 09:05 Dose: Not Given Folic Acid 1 mg/ Sodium (Chloride) 100.2 mls @ 60 mls/hr IVPB DAILY [facility] Last Admin: 07/05/18 08:58 Dose: 60 mls/hr Pantoprazole Sodium 40 mg/ (Sodium Chloride) 100 mls @ 20 mls/hr IVPB Q5H [facility] Last Admin: 07/05/18 11:11 Dose: 20 mls/hr Octreotide Acetate 1,250 mcg/ (Sodium Chloride) 252.5 mls @ 10.1 mls/hr IV .Q24H [facility]; Protocol Last Admin: 07/04/18 22:21 Dose: Not Given Thiamine HCl 100 mg/ Dextrose 101 mls @ 100 mls/hr IV DAILY [facility] Last Admin: 07/05/18 09:07 Dose: 100 mls/hr Lactated Ringer's (Lactated Ringer's) 1,000 mls @ 50 mls/hr IV .Q20H [facility] Last Admin: 07/04/18 12:05 Dose: 100 mls Ciprofloxacin (Cipro 400mg/200ml Dsw) 400 mg in 200 mls @ 200 mls/hr IVPB Q12 [facility]; Protocol Last Admin: 07/05/18 08:57 Dose: 200 mls/hr Lorazepam (Ativan) 1 mg IVP Q4H PRN PRN Reason: Symptoms of alcohol withdrawl Ondansetron HCl (Zofran Inj) 4 mg IVP Q6 PRN PRN Reason: Nausea/Vomiting Propranolol HCl (Inderal) 10 mg PO DAILY [facility] Last Admin: 07/05/18 09:06 Dose: Not Given Physical Exam - Additional Findings Additional findings: Physical exam; Alert,well oriented, in no acute distress, well built neck; Supple, no adenopathy Chest; Clear, no rales or rhonchi Heart; RSR, no murmur Abd; soft, no mass, no hepatomegaly, spleen 2cm below the left costal margin Results - Vital Signs Recent Vital Signs: Last Vital Signs Temp 98.5 F 07/05/18 08:00 Pulse 69 07/05/18 08:00 Resp 18 07/05/18 08:00 BP 112/75 07/05/18 08:00 Pulse Ox 95 07/05/18 08:00 - Labs Result Diagrams: 07/05/18 04:20 07/04/18 04:30 Labs: Laboratory Results - last 24 hr 07/04/18 07/05/18 11:49 04:20 WBC 1.9 L* RBC 3.19 L Hgb 8.5 L Hct 26.7 L MCV 83.7 MCH 26.8 L MCHC 32.0 L RDW 21.5 H Plt Count 41 L Blood Type O POSITIVE Antibody Screen Negative Crossmatch See Detail BBK History Checked Patient has bt Assessment & Plan - Assessment and Plan (Free Text) Assessment: Impression; Alcohol abuse, wit cirrhosis, portal hypertension, varices, splenom egaly, and pancytopenia secondary to hypersplenism. and bone marrow depression from alcohol intoxication Anemia secondary to ariceal bleeding. Plan: Plan; would transfuse 2 unirts of platelets just prior to the procedure. Pt needs to be in a AA program , beause abstinence from alcohol is te only thing that an help. - Date & Time Date: 07/05/18 Time: 12:25
[2018-07-05] MEDS ORDERED: EPINEPHrine 1 mg/ml (1:1000) Inj ONE (12:35)
[2018-07-05] MEDS ORDERED: Etomidate 20 mg/10ml Inj IV ONE (14:19)
[2018-07-05] MEDS ORDERED: Propofol 10 mg/ml Inj (20 ML) ONE (14:39)
[2018-07-05] MEDS ORDERED: Lactated Ringer's 500 ML IV ONE (14:48)
--- NOTE | 2018-07-05 16:00 | CP.PCM.DIS ---
Provider - Provider Date of Admission: 06/30/18 10:34 Attending physician: Steve Aparicio MD Consults: 06/30/18 11:11 Gastroenterology Consult Stat Comment: Consulting Provider: Tremaine Leger Consulting Physician: Tremaine Leger Reason for Consult: UGIB 07/05/18 08:36 Hematology Oncology Consult Routine Comment: Consulting Provider: Kerri Mesa Consulting Physician: Kerri Mesa Reason for Consult: 46 YO M w/ PMH alcoholism is being refered for pancytopenia Time Spent in preparation of Discharge (in minutes): 30 Diagnosis - Discharge Diagnosis (1) Esophageal varices determined by endoscopy Status: Acute (2) Anemia Status: Chronic Priority: High (3) Thrombocytopenia Status: Chronic Priority: High (4) UGIB (upper gastrointestinal bleed) Status: Resolved Priority: High (5) Alcoholic cirrhosis of liver Status: Chronic Priority: High (6) Abdominal pain Status: Resolved Hospital Course - Lab Results Lab Results: Micro Results 07/02/18 10:40 Nose MRSA Culture (Admit) - Final MRSA NOT DETECTED 06/30/18 09:00 Naris MRSA Culture (Admit) - Final MRSA NOT DETECTED Most Recent Lab Values WBC 1.9 K/uL (4.8-10.8) L* 07/05/18 04:20 RBC 3.19 Mil/uL (4.40-5.90) L 07/05/18 04:20 Hgb 8.5 g/dL (12.0-18.0) L 07/05/18 04:20 Hct 26.7 % (35.0-51.0) L 07/05/18 04:20 MCV 83.7 fl (80.0-94.0) 07/05/18 04:20 MCH 26.8 pg (27.0-31.0) L 07/05/18 04:20 MCHC 32.0 g/dL (33.0-37.0) L 07/05/18 04:20 RDW 21.5 % (11.5-14.5) H 07/05/18 04:20 Plt Count 41 K/uL (130-400) L 07/05/18 04:20 Manual Plt Count 36 K/uL (130-400) L* 07/04/18 08:20 MPV 8.6 fl (7.2-11.7) 07/03/18 04:30 Neut % (Auto) 59.3 % (50.0-75.0) 07/03/18 04:30 Lymph % (Auto) 20.0 % (20.0-40.0) 07/03/18 04:30 [place] % (Auto) 10.6 % (0.0-10.0) H 07/03/18 04:30 Eos % (Auto) 9.0 % (0.0-4.0) H 07/03/18 04:30 Baso % (Auto) 1.1 % (0.0-2.0) 07/03/18 04:30 Neut # (Auto) 1.0 K/uL (1.8-7.0) L 07/03/18 04:30 Lymph # (Auto) 0.3 K/uL (1.0-4.3) L 07/03/18 04:30 [place] # (Auto) 0.2 K/uL (0.0-0.8) 07/03/18 04:30 Eos # (Auto) 0.2 K/uL (0.0-0.7) 07/03/18 04:30 Baso # (Auto) 0.0 K/uL (0.0-0.2) 07/03/18 04:30 PT 15.7 Seconds (9.8-13.1) H 07/01/18 05:30 INR 1.4 07/01/18 05:30 APTT 34.9 Seconds (25.6-37.1) 07/01/18 05:30 pO2 59 mm/Hg (30-55) H 06/30/18 10:40 VBG pH 7.07 (7.32-7.43) L* 06/30/18 10:40 VBG pCO2 80 mmHg (40-60) H* 06/30/18 10:40 VBG HCO3 17.7 mmol/L 06/30/18 10:40 VBG Total CO2 25.7 mmol/L (22-28) 06/30/18 10:40 VBG O2 Sat (Calc) 85.9 % (40-65) H 06/30/18 10:40 VBG Base Excess -8.5 mmol/L (0.0-2.0) L 06/30/18 10:40 VBG Potassium > 20.0 mmol/L (3.6-5.2) H* 06/30/18 10:40 Sodium 134.0 mmol/L (132-148) 06/30/18 10:40 Chloride 111.0 mmol/L (98-107) H 06/30/18 10:40 Glucose 118 mg/dL (75-110) H 06/30/18 10:40 Lactate 2.0 mmol/L (0.7-2.1) 06/30/18 10:40 FiO2 21.0 % 06/30/18 10:40 Blood Gas Comments Lac=2.0 06/30/18 10:40 Crit Value Called To brian Rangel do 06/30/18 10:40 Crit Value Called By 22 06/30/18 10:40 Crit Value Read Back Y 06/30/18 10:40 Blood Gas Notified Time 1046 06/30/18 10:40 Sodium 137 mmol/l (132-148) 07/04/18 04:30 Potassium 4.0 MMOL/L (3.6-5.0) 07/04/18 04:30 Chloride 98 mmol/L (98-107) 07/04/18 04:30 Carbon Dioxide 28 mmol/L (22-30) 07/04/18 04:30 Anion Gap 15 (10-20) 07/04/18 04:30 BUN 8 mg/dl (9-20) L 07/04/18 04:30 Creatinine 0.7 mg/dl (0.8-1.5) L 07/04/18 04:30 Est GFR ( Amer) > 60 07/04/18 04:30 Est GFR (Non-Af Amer) > 60 07/04/18 04:30 Random Glucose 99 mg/dL (75-110) 07/04/18 04:30 Calcium 8.4 mg/dL (8.4-10.2) 07/04/18 04:30 Phosphorus 3.3 mg/dl (2.5-4.5) 07/02/18 05:37 Magnesium 1.8 MG/DL (1.6-2.3) 07/02/18 05:37 Total Bilirubin 2.6 mg/dl (0.2-1.3) H 07/04/18 04:30 AST 172 U/L (17-59) H 07/04/18 04:30 ALT 91 U/L (21-72) H 07/04/18 04:30 Alkaline Phosphatase 79 U/L (38-126) 07/04/18 04:30 Troponin I < 0.0120 ng/mL (0.00-0.120) 07/01/18 05:30 Total Protein 7.4 G/DL (6.3-8.2) 07/04/18 04:30 Albumin 3.4 g/dL (3.5-5.0) L 07/04/18 04:30 Globulin 4.0 gm/dL (2.2-3.9) H 07/04/18 04:30 Albumin/Globulin Ratio 0.9 (1.0-2.1) L 07/04/18 04:30 Lipase 147 U/L (23-300) 06/30/18 10:00 Venous Blood Potassium > 20.0 mmol/L (3.6-5.2) H* 06/30/18 10:40 Urine Color Yellow (YELLOW) 06/30/18 21:36 Urine Clarity Clear (Clear) 06/30/18 21:36 Urine pH 6.0 (5.0-8.0) 06/30/18 21:36 Ur Specific Spicer 1.017 (1.003-1.030) 06/30/18 21:36 Urine Protein Negative mg/dL (NEGATIVE) 06/30/18 21:36 Urine Glucose (UA) Neg mg/dL (NEGATIVE) 06/30/18 21:36 Urine Ketones Trace mg/dL (NEGATIVE) 06/30/18 21:36 Urine Blood Negative (NEGATIVE) 06/30/18 21:36 Urine Nitrate Negative (NEGATIVE) 06/30/18 21:36 Urine Bilirubin Negative (NEGATIVE) 06/30/18 21:36 Urine Urobilinogen 2.0 mg/dL (0.2-1.0) 06/30/18 21:36 Ur Leukocyte Esterase Neg Laxmi/uL (Negative) 06/30/18 21:36 Urine RBC (Auto) < 1 /hpf (0-3) 06/30/18 21:36 Urine Microscopic WBC < 1 /hpf (0-5) 06/30/18 21:36 Alcohol, Quantitative 215 mg/dl (0-10) H 06/30/18 10:00 Blood Type O POSITIVE 07/04/18 11:49 Antibody Screen Negative 07/04/18 11:49 Crossmatch See Detail 07/04/18 11:49 BBK History Checked Patient has bt 07/04/18 11:49 - Hospital Course Hospital Course: 43 year old male with PMHx of liver cirrhosis, esophageal varices, upper GI bleeding diagnosed in 2017 and alcohol use disorder presents to the emergency department on 06/30/18 for evaluation of hematemesis. Patient was admitted for acute GI bleeding and admitted to ICU for monitoring. Patient did not have hematemesis during hospitalization, however had episodes of hematochezia. Patient received 2 units of PRBC, 8 units of platelets and 1 unit of FFP. Patient's H&H this morning was 8.5/26.7. Patient had EGD yesterday which showed grade III esophageal varices, however banding was not performed due to not having updated type and screen. Patient had EGD today and had 2 esphageal banding with no bleeding. As per GI, Dr. Leger, patient is hemodynamically stable to discharge to home with pantoprazole 40 mg po daily and propranolol 10 mg po daily. Advised patient to quit drinking and agrees with the plan. Advised to follow up with GI and PMD in 1 week. Discharge Exam - Head Exam Head Exam: ATRAUMATIC, NORMAL INSPECTION, NORMOCEPHALIC - Eye Exam Eye Exam: Normal appearance - ENT Exam ENT Exam: Mucous Membranes Moist - Respiratory Exam Respiratory Exam: Clear to PA & Lateral, NORMAL BREATHING PATTERN. absent: Wheezes, Respiratory Distress - Cardiovascular Exam Cardiovascular Exam: REGULAR RHYTHM, +S1, +S2 - GI/Abdominal Exam GI & Abdominal Exam: Normal Bowel Sounds, Soft. absent: Rigid, Tenderness - Extremities Exam Extremities exam: normal inspection - Neurological Exam Neurological exam: Alert, Oriented x3 - Psychiatric Exam Psychiatric exam: Normal Affect, Normal Mood - Skin Skin Exam: Normal Color Discharge Plan - Discharge Medications Prescriptions: Pantoprazole Sodium [Protonix] 40 mg PO DAILY #30 ect Propranolol [Inderal] 10 mg PO DAILY #30 tab - Follow Up Plan Condition: GUARDED Disposition: HOME/ ROUTINE Instructions: Gastrointestinal Bleeding (DC), Alcohol Abuse and Alcoholism (DC) Additional Instructions: Please follow up with Underwriting Director Dr. Leger in 1-2 weeks. Follow up with your doctor in 1 week Referrals: at [facility] [Outside] Tremaine Leger MD [Staff Provider] -
[2018-07-05 16:16] VITALS: BP 133/81; PULSE 58; RESP 16; TEMP 98.2; O2SAT 98
[2018-07-05] MEDS ORDERED: Pantoprazole 40 mg EC Tab PO SCH (17:00)
== END 2018-07-05 17:30 | disposition home or self-care (01) | DRG 280 ==
LOC: H.ER 09:13 → H.ERHOLD 10:34 → H.ICU/CCU 15:35 → H.TEL 07-04 17:18
PROC: 6A551Z2 Pheresis of Platelets, Multiple (ICD-10-PCS; 2018-06-30)
PROC: 30233N1 Transfusion of Nonautologous Red Blood Cells into Peripheral Vein, Percutaneous Approach (ICD-10-PCS; 2018-06-30)
PROC: 0DB68ZX Excision of Stomach, Via Natural or Artificial Opening Endoscopic, Diagnostic (ICD-10-PCS; 2018-07-04)
PROC: 0W3P8ZZ Control Bleeding in Gastrointestinal Tract, Via Natural or Artificial Opening Endoscopic (ICD-10-PCS; principal; 2018-07-05 14:00)
DX: K70.30 Alcoholic cirrhosis of liver without ascites (principal); I85.11 Secondary esophageal varices with bleeding; D61.818 Other pancytopenia; D68.9 Coagulation defect, unspecified; K76.6 Portal hypertension; D62 Acute posthemorrhagic anemia; F10.229 Alcohol dependence with intoxication, unspecified; Y90.7 Blood alcohol level of 200-239 mg/100 ml; D73.1 Hypersplenism; Z87.891 Personal history of nicotine dependence; K31.89 Other diseases of stomach and duodenum; Z79.899 Other long term (current) drug therapy; K29.20 Alcoholic gastritis without bleeding; Z88.0 Allergy status to penicillin